=== PATIENT | female | born 1970 | race Caucasian/White ===

== ENCOUNTER 2019-07-05 08:38 | Outpatient (CLI) | payer OTHER, SELFPAY ==
--- NOTE | ~2019-07-05 | MMUS_ITS ---
EXAMINATION: MM diagnostic andree BI w willie, US breast LT complete HISTORY: Left nipple discharge TECHNIQUE: ML, MLO and cc 3-D tomosynthesis images of both breasts were performed and synthetic 2-D i mages were generated. CAD analysis was submitted and interpreted. High resolution complete left breas t ultrasound was performed. COMPARISON: 03/08/2012 bilateral digital screening mammogram BREAST PARENCHYMAL COMPOSITION: There are scattered areas of fibroglandular density. FINDINGS: MAMMOGRAPHIC FINDINGS: No suspicious mass or architectural distortion, malignant calcification, skin thickening or retractio n or significant or developing density since 03/08/2012 is evident. Left complete breast ULTRASOUND: 12:00 1 cm from nipple: Parallel circumscribed relatively sonolucent 3.5 x 7.8 x 9.3 mm lesion with t hrough transmission posterior enhancement, faint internal echoes, having benign appearance 1:00 3 cm from nipple: 1.7 x 1.8 mm sonolucency, likely a small cyst 6:00 3 cm from nipple: Parallel circumscribed 6.2 x 4.2 x 2.2 mm relatively sonolucent lesion with fa int internal echoes, having benign appearance No suspicious solid lesion or shadowing is evident. IMPRESSION: 1. No mammographic evidence of malignancy 2. Routine annual mammographic screening follow-up is recommended BI-RADS Category 2: Benign finding(s). Reviewed, dictated and finalized at location A. LINING [employer] IMPRESSION: 1. No mammographic evidence of malignancy 2. Routine annual mammographic screening follow-up is recommended BI-RADS Category 2: Benign finding(s).
== END 2019-07-05 08:39 | disposition home or self-care (01) ==
LOC: CHSIMG 08:39
PROVIDERS: PCP Internal Medicine; Visit Provider Nurse Practitioner Family
DX: N64.52 Nipple discharge (principal)
CPT/HCPCS: 76641; 77062; 77066; G0279

== ENCOUNTER 2019-07-10 12:57 | Outpatient (CLI) | payer OTHER, SELFPAY | END 2019-07-10 12:58 | disposition home or self-care (01) | PROVIDERS: PCP Internal Medicine; Visit Provider Nurse Practitioner Family | DX: Z53.8 Procedure and treatment not carried out for other reasons (principal); N64.52 Nipple discharge; Z78.0 Asymptomatic menopausal state; E11.9 Type 2 diabetes mellitus without complications; I10 Essential (primary) hypertension | CPT/HCPCS: 99199 ==

== ENCOUNTER 2019-10-31 00:07 | Outpatient (CLI) | payer OTHER, SELFPAY ==
[2019-10-31 17:33] LABS: SARS-CoV-2 RNA PCR Negative
== END 2019-10-31 00:08 | disposition home or self-care (01) ==
LOC: ANHCOVIDDT 00:07
PROVIDERS: PCP Internal Medicine; Visit Provider Surgery
DX: Z01.812 Encounter for preprocedural laboratory examination (principal); Z20.828 Contact with and (suspected) exposure to other viral communicable diseases
CPT/HCPCS: 87635; C9803; U0003

== ENCOUNTER 2019-11-02 01:26 | Day surgery (SDC) | payer OTHER, SELFPAY ==
[2019-10-22 12:42] VITALS: BMI 69.2
[2019-11-02 10:57] VITALS: BP 137/72; PULSE 131; RESP 22; TEMP 36.8; O2SAT 95
[2019-11-02] MEDS: LACTATED RINGERS 1,000 ML 150 ML IV CONT (11:05)
--- NOTE | 2019-11-02 11:07 | WPDANESEPPF ---
Anes - Initial Pre Proc Eval Procedure: Operation Date: 11/02/19 13:00 Proposed Procedures p Screening Colonoscopy - Paramjit Soni DO Date/Time: 11/02/19 11:07 Surgeon: Paramjit Soni DO Pre Op Diagnosis: History of Colon Polyps Patient Data Age: 49 Gender: F Height: 5 ft 2 in Weight: 172.1 kg Last Vital Signs Temp 36.8 C 11/02/19 10:57 Pulse 131 H 11/02/19 10:57 Resp 22 H 11/02/19 10:57 BP 137/72 11/02/19 10:57 Pulse Ox 95 11/02/19 10:57 Allergies Allergy/AdvReac Type Severity Reaction Status Date / Time No Known Allergies Allergy Verified 11/02/19 10:55 Home Medications Medication Instructions Recorded Confirmed Type aspirin 325 mg PO DAILY 10/22/19 10/22/19 History bupropion HCl 300 mg PO QAM 10/22/19 10/22/19 History hydroxyzine pamoate 50 mg PO QID PRN 10/22/19 10/22/19 History venlafaxine 150 mg PO BID 10/22/19 10/22/19 History Patient hx anesthesia problems: none Family hx anesthesia problems: none PMFSH Past Medical History Medical History Anxiety CAD (coronary artery disease) Depression DVT (deep venous thrombosis) Hyperlipidemia KIERA (obstructive sleep apnea) Super obesity Surgical History Surgical History Stented coronary artery Social History Social History Gender identity (if verbalized by the patient): Female Anes - Eval Final PreProcedure Day of Procedure 11/02/19 11:07 Patient weight: super morbidly obese Heart: regular rate and rhythm Lungs: decreased breath sounds Airway: Mallampati scale class II Neurological: alert and oriented Last oral intake: >/= 8 hours ASA classification: IV Emergent: no Anesthetic plan: proceed Anesthesia type and monitoring: general GIVS and standard monitoring Informed Consent: The patient's anesthetic plan and its attendant risks and benefits were discussed with the patient/family/POA. Questions were solicited and answers provided to the satisfaction of the patient/family/POA.
--- NOTE | 2019-11-02 13:07 | PM.IMHP ---
H&P: HPI History of Present Illness Chief complaint: History of Colon Polyps Narrative: Vanesa Irvin is a 49 year old female who presents for colonoscopy. She has a hx of polyps and last had a colonoscopy about 5 years ago. Denies blood in stool. No fam hx colon cancer. Review of Systems Review of Systems: All systems reviewed & are unremarkable except as noted in HPI and below Constitutional: Constitutional: Denies chills, Denies fever(s), Denies headache(s) and Denies weight loss Eyes: Eyes: Denies change in vision ENT: Denies dizziness, Denies headache(s), Denies neck mass and Denies throat swelling Cardiovascular: Cardiovascular: Denies chest pain, Denies lightheadedness and Denies dyspnea Respiratory: Respiratory: Denies cough, Denies dyspnea and Denies wheezing Gastrointestinal: Gastrointestinal: Denies abdominal pain, Denies change in bowel habits, Denies nausea and Denies vomiting Genitourinary: Genitourinary: Denies hematuria and Denies dysuria Musculoskeletal: Musculoskeletal: Reports as per HPI Integumentary/Breasts: Skin/Breast: Reports as per HPI Neurologic: Denies dizziness and Denies headache(s) Allergic/Immunologic: Allergic/Immunologic: Denies throat swelling and Denies wheezing PMFSH Past Medical History Medical History Anxiety CAD (coronary artery disease) Depression DVT (deep venous thrombosis) Hyperlipidemia KIERA (obstructive sleep apnea) Super obesity Surgical History Surgical History Stented coronary artery Social History Social History Gender identity (if verbalized by the patient): Female Meds Home Medications and Allergies Home Medications Medication Instructions Recorded Confirmed Type aspirin 325 mg PO DAILY 10/22/19 10/22/19 History bupropion HCl 300 mg PO QAM 10/22/19 10/22/19 History hydroxyzine pamoate 50 mg PO QID PRN 10/22/19 10/22/19 History venlafaxine 150 mg PO BID 10/22/19 10/22/19 History Allergies Allergy/AdvReac Type Severity Reaction Status Date / Time No Known Allergies Allergy Verified 11/02/19 10:55 Vital Signs Vital Signs - 24 hr 11/02/19 10:57 Temperature 36.8 C Pulse Rate 131 H Respiratory Rate 22 H Blood Pressure 137/72 Pulse Oximetry 95 Exam Const: General: alert; No acute distress Orientation/consciousness: patient oriented x3 Limitations: no limitations HENMT: Head: normocephalic and atraumatic Ears: hearing grossly normal bilaterally General nose exam: Normal external nose present and Normal nares present Mouth: Yes Normal oral and palatal mucosa present and Yes moist mucous membranes Eyes: General: appearance normal, both eyes and all related structures Conjunctivae: conjunctivae normal Sclera: sclerae normal Pupils: Equal, round and reactive pupils present EOM: EOMs intact bilaterally Neck: Neck: normal visual inspection, full ROM, no lymphadenopathy, supple and no JVD Lymphatic: no lymphadenopathy noted Chest: Chest palpation & inspection: normal inspection of the chest Resp: Effort & Inspection: normal respiratory effort and able to speak in complete sentences Auscultation: clear to auscultation bilaterally Percussion: percussion normal Cardio: Jugular venous distension: no JVD Rate: regular rate Rhythm: regular rhythm Heart sounds: S1 normal heart sound present and S2 normal heart sound present Peripheral pulses: Peripheral pulses 2+ throughout GI: Inspection: normal to inspection GI Palp: No abdominal tenderness, Yes Soft to palpation, No Guarding due to palpation present (GI), No Hernia present and No Rebound tenderness present Percussion: Yes normal to percussion Auscultation: normal bowel sounds : General: Yes no CVA tenderness Back/Spine/Pelvis: Back: no CVA tenderness Skin: General skin exam: normal color and dry
[2019-11-02 13:48] VITALS: BP 127/56; PULSE 103; RESP 22; O2SAT 100
[2019-11-02 13:58] VITALS: BP 127/72; PULSE 104; RESP 21; O2SAT 97
[2019-11-02 14:08] VITALS: BP 132/84; PULSE 101; RESP 24; O2SAT 100
== END 2019-11-02 14:30 | disposition home or self-care (01) ==
PROVIDERS: PCP Internal Medicine; Visit Provider Surgery
PROC: 0DJD8ZZ Inspection of Lower Intestinal Tract, Via Natural or Artificial Opening Endoscopic (ICD-10-PCS; CPT 45378; principal; 2019-11-02 13:00)
DX: Z12.11 Encounter for screening for malignant neoplasm of colon (principal); D12.2 Benign neoplasm of ascending colon; D17.5 Benign lipomatous neoplasm of intra-abdominal organs; I25.10 Atherosclerotic heart disease of native coronary artery without angina pectoris; E78.5 Hyperlipidemia, unspecified; G47.33 Obstructive sleep apnea (adult) (pediatric); F41.8 Other specified anxiety disorders; Z86.718 Personal history of other venous thrombosis and embolism; Z79.82 Long term (current) use of aspirin; E66.01 Morbid (severe) obesity due to excess calories; Z68.44 Body mass index [BMI] 60.0-69.9, adult; Z95.5 Presence of coronary angioplasty implant and graft
CPT/HCPCS: 45380; 45385; 88305; J2704; J7120

== ENCOUNTER 2020-01-15 07:45 | Inpatient (IN) | payer OTHER, SELFPAY ==
[2020-01-15] VITALS (9 sets, daily range): BP systolic 103–165; BP diastolic 53–88; PULSE 96–130; RESP 20–24; TEMP 35.8–38.2; O2SAT 94–98; BMI 69.9
--- NOTE | ~2020-01-15 | CT_ITS ---
EXAMINATION: CT abdomen pelvis wo con DATE: 01/20/2020 09:51 INDICATION: Abdomen pain. Status post hysterectomy. Gallbladder and appendix surgically removed. TECHNIQUE: Computed tomography (CT) of the abdomen and pelvis was performed without intravenous contr ast. The dose-length product was 1692.82 mGy-cm. Automated exposure control and iterative reconstruct ion technique were employed. COMPARISON: CT dated 12/10/2011 FINDINGS: Lung bases are unremarkable. Heart size normal. No significant pleural or pericardial effus ion. Status post cholecystectomy. There is a subtle 1.6 cm hypodensity of the right hepatic lobe, breana ge 82. The spleen, pancreas, adrenal glands and kidneys are unremarkable. No significant vascular abn ormality. Nonobstructive bowel gas pattern. No lymph node enlargement. No free air or free fluid. No abnormal pelvic masses or fluid collections. Status post appendectomy. Status post hysterectomy. IMPRESSION: 1. No acute abdominal abnormality. 2: Subtle liver hypodensity measuring 1.6 cm of the right hepatic lobe. Correlation with ultrasound recommended. Reviewed, dictated and finalized at location A. IMPRESSION: 1. No acute abdominal abnormality. 2: Subtle liver hypodensity measuring 1.6 cm of the right hepatic lobe. Correl ation with ultrasound recommended.
--- NOTE | ~2020-01-15 | US_ITS ---
EXAMINATION: US right upper quadrant DATE: 01/21/2020 09:36 INDICATION: Elevated liver enzymes, possible liver lesion on CT. TECHNIQUE: Multiple grayscale and Doppler ultrasound images of the abdomen were obtained. COMPARISON: CT, 01/20/2020 FINDINGS: Bowel gas obscures visualization of the pancreas. The visualized portions of the pancreas a re unremarkable. The liver is normal with normal echogenicity and echotexture. No sonographic correla te is identified for the liver lesion questioned on CT. However, the lesion measured fluid attenuatio n, most likely a cyst or hemangioma. No surface nodularity. Normal hepatopetal flow in the main andie l vein. The gallbladder is surgically absent. The normal common bile duct measures 6 mm. IMPRESSION: 1. No sonographic correlate for the patient's symptoms. Reviewed, dictated and finalized at location A.
--- NOTE | ~2020-01-15 | CT_ITS ---
EXAMINATION: CTA chest PE protocol DATE: 01/15/2020 09:56 INDICATION: Chest pain, tachycardia, shortness of breath and elevated d-dimer. TECHNIQUE: Computed tomography (CT) pulmonary angiogram of the chest was performed with 100 mL Omnipa que-350 intravenous contrast. Additional 3D reconstructions utilizing coronal maximum intensity proje ction (MIP) were performed. Automated exposure control and iterative reconstruction technique were em ployed. The dose-length product was 1013.98 mGy-cm. COMPARISON: 10/09/2010 FINDINGS: Excellent contrast opacification of the pulmonary arteries. There is mild streak artifact from dense contrast in the superior vena cava and right atrium which affects most prominently the vessels in the infrahilar region. Mild scattered respiratory motion artifact. No definitive pulmonary embolism. The re are three 5-6 mm noncalcified granuloma in the left lower lobe which are unchanged since the prior study. No pneumonia, pulmonary edema, pleural effusion or pneumothorax. Heart size is normal with mi ldly prominent paracardial fat pads. Atherosclerotic coronary artery calcific calcification. No peric ardial effusion. No pathologically enlarged thoracic lymphadenopathy. Diffuse hepatic steatosis. Chol ecystectomy clips at the gallbladder fossa. Minimal thoracic spondylosis. IMPRESSION: 1. No pulmonary embolism or other acute cardiopulmonary disease. Reviewed, dictated and finalized at location A.
--- NOTE | ~2020-01-15 | XR_ITS ---
EXAMINATION: XR chest 1V portable DATE: 01/15/2020 08:24 INDICATION: Chest pain. Fever. TECHNIQUE: A single frontal view of the chest was obtained. COMPARISON: Chest single view 02/15/2015 FINDINGS: There is no pneumonia, pleural effusion, or pneumothorax. Cardiomegaly is noted. IMPRESSION: 1. Cardiomegaly. Reviewed, dictated and finalized at location B. IMPRESSION: 1. Cardiomegaly.
--- NOTE | ~2020-01-15 | US_ITS ---
EXAMINATION: US venous doppler [facility] DATE: 01/16/2020 10:30 INDICATION: Chest pain. TECHNIQUE: Grayscale ultrasound images without and with compression and Doppler ultrasound images of the bilateral lower extremity veins were obtained. COMPARISON: None. FINDINGS: The visualized portions of right common femoral vein, profunda (deep) femoral vein, femoral vein, pop liteal vein, posterior tibial veins, and greater saphenous vein outflow are patent. The visualized portions of left common femoral vein, profunda femoral vein, femoral vein, popliteal v ein, posterior tibial veins, and greater saphenous vein outflow are patent. IMPRESSION: 1. No deep venous thrombosis. Reviewed, dictated and finalized at location B.
[2020-01-15] MEDS: ONDANSETRON INJ 4 MG/2 ML VIAL IV PUSH ×2 (07:50→21:58)
--- NOTE | 2020-01-15 07:50 | ECG_ITS ---
Measurements Intervals [place] Rate: 130 P: 69 WA: 184 QRS: 76 QRSD: 86 T: 46 QT: 302 QTc: 445 Interpretive Statements SINUS TACHYCARDIA VENTRICULAR PREMATURE COMPLEX LOW QRS VOLTAGE IN PRECORDIAL LEADS BORDERLINE R WAVE PROGRESSION, ANTERIOR LEADS NONSPECIFIC T-WAVE ABNORMALITY- INFERIOR LEADS ABNORMAL ECG Electronically Signed On 01-15-2020 13:44:32 CDT by Serafin Burns D.O.
--- NOTE | 2020-01-15 07:50 | ED.CHESTPAIN ---
HPI - Chest Pain General Chief Complaint: Chest Pain Stated Complaint: ambulance Time Seen by Provider: 01/15/20 07:50 Source: patient and EMS Mode of arrival: EMS Limitations: no limitations History of Present Illness HPI narrative: 49-year-old woman comes in today complaining of vomiting, sharp left-sided chest pain that is intermittent, shortness of breath and fever that started this morning. She states this started several hours ago. She states that she ate evening meal and felt fine last night when she went to bed. She states the chest pain is similar to what she had when she had heart problems previously. She denies lightheadedness, falls, syncope, dysuria, hematuria, abdominal pain, diarrhea, rash or sick exposures. She received 324 mg of aspirin in the ambulance. MD complaint: chest pain Pertinent past history: coronary artery disease and prior ID Onset (ago): hour(s) (2) Timing of current episode: episodic Prior episodes: Yes Onset: during rest Pain location: left chest Pain radiation: back Quality: sharp Relieving factors: nothing Exacerbating factors: nothing Associated symptoms: nausea, vomiting, diaphoresis, palpitations and fever Treatment prior to arrival: aspirin and oxygen Risk Factors Coronary artery disease risk factors: smoking history, hyperlipidemia and hypertension Thoracic aortic dissection risk factors: none Pulmonary embolism risk factors: morbid obesity Related Data On Oral Contraceptives: No Home Medications Medication Instructions Recorded Confirmed aspirin 325 mg PO DAILY 10/22/19 01/15/20 bupropion HCl 300 mg PO QAM 10/22/19 01/15/20 hydroxyzine pamoate 50 mg PO QID PRN 10/22/19 01/15/20 venlafaxine 150 mg PO BID 10/22/19 01/15/20 Allergies Allergy/AdvReac Type Severity Reaction Status Date / Time No Known Allergies Allergy Verified 11/02/19 10:55 Review of Systems Constitutional: Constitutional: Reports as per HPI, Reports chills, Reports fatigue and Reports fever(s) Eyes: Eyes: Denies no additional eye complaints, Denies change in vision and Denies photophobia ENT: Denies dysphagia, Denies nasal congestion and Denies sore throat Cardiovascular: Cardiovascular: Reports as per HPI, Reports no additional cardiovascular complaints, Reports chest pain, Reports rapid heart rate and Denies radiating jaw, neck or arm pain Respiratory: Respiratory: Denies chest congestion, Denies cough, Reports dyspnea and Denies wheezing Gastrointestinal: Gastrointestinal: Reports as per HPI, Denies abdominal pain, Denies diarrhea, Reports nausea and Reports vomiting Genitourinary: Genitourinary: Denies nocturia and Denies dysuria Musculoskeletal: Musculoskeletal: Denies back pain, Reports myalgias, Denies arthralgias and Denies joint swelling Integumentary/Breasts: Skin/Breast: Denies pruritus, Denies erythema and Denies rash Neurologic: Denies vertigo, Denies dizziness, Denies syncope, Denies headache(s), Denies focal weakness and Denies numbness Psychiatric: Psychiatric: Reports anxiety Endocrine: Endocrine: Reports fatigue, Reports polydipsia and Denies polyuria Hematologic/Lymphatic: Hematologic/Lymphatic: Denies easy bleeding and Denies easy bruising Allergic/Immunologic: Allergic/Immunologic: Denies lip swelling, Denies throat swelling and Denies tongue swelling PMFSH Past Medical History Medical History (Updated 01/15/20 @ 09:12 by Reid Canales MD) Anxiety CAD (coronary artery disease) Depression DVT (deep venous thrombosis) Hyperlipidemia KIERA (obstructive sleep apnea) Super obesity Surgical History Surgical History (Updated 01/15/20 @ 08:00 by Reid Canales MD) History of appendectomy History of hysterectomy Hx of cholecystectomy Hx of tubal ligation Stented coronary artery Social History Social History Smoking status: Former smoker Alcohol intake: never Substance use: never Living arrangements:
[2020-01-15] MEDS: MORPHINE SULFATE 2 MG/ML INJ IV PUSH (07:53)
[2020-01-15 08:15] LABS: Basophils Absolute Auto 0.03 K/mm3 (0.00-0.10); Basophils Percent Auto 0.2 % (0.0-1.0); Eosinophils Absolute Auto 0.09 K/mm3 (0.02-0.50); Eosinophils Percent Auto 0.5 % (1.0-6.0); Hematocrit 43.4 % (35.0-49.0); Hemoglobin 13.9 g/dL (12.0-15.0); Immature Granulocyte Absolute 0.12 K/mm3 (0.00-0.00); Immature Granulocyte Percent A 0.7 % (0.0-0.0); Lymphocytes Absolute Auto 0.48 K/mm3 (1.10-4.50); Lymphocytes Percent Auto 2.9 % (18.0-42.0); Mean Corpuscular Hemoglobin 27.6 pg (27.0-31.0); Mean Corpuscular Volume 86.3 fL (78.0-102.0); Monocytes Absolute Auto 0.46 K/mm3 (0.10-0.90); Monocytes Percent Auto 2.8 % (2.0-11.0); Neutrophils Absolute Auto 15.2 K/mm3 (1.7-7.2); Neutrophils Percent Auto 92.9 % (50.0-70.0); Platelet Count Result 243 K/mm3 (150-420); Red Blood Count 5.03 M/mm3 (4.20-5.40); Red Cell Distribution Width 15.2 % (11.6-14.4); White Blood Count 16.4 K/mm3 (4.8-10.8)
[2020-01-15] MEDS: SODIUM CHLORIDE 0.9% IV 1,000 ML 999 ML IV CONT ×2 (08:16→09:21)
[2020-01-15 08:23] LABS: Bilirubin Urine Negative (Negative); Color Urine Yellow (Yellow); Glucose Urine UA 1+ (Negative); Ketones Urine Negative (Negative); Leukocyte Esterase Ur 1+ LEU/UL (Negative); Nitrate Urine Negative (Negative); Protein Urine Negative (Negative); Specific Grav Ur >= 1.030 (1.010-1.020); Urobilinogen Urine 0.2 mg/dL (0.2-1.0)
[2020-01-15 08:30] LABS: Add Urine Microscopic? YES; Appearance Urine Sl Cloudy (Clear); Bacteria Urine 1+ /hpf; Blood Urine Trace (Negative); RBC Urine 0-2 /hpf (0-2); Squamous Epithelial Cell Urine Many /hpf (Few)
[2020-01-15 08:30] LABS: Partial Thromboplastin Time 28.5 SEC (22.3-31.6); Prothrombin Time 10.7 Seconds (9.64-11.0)
[2020-01-15 08:32] LABS: D Dimer 1.75 mg/L (0.19-0.50)
[2020-01-15 08:33] LABS: Alanine Aminotransferase 24 U/L (14-59); Albumin Level 3.2 g/dL (3.4-5.0); Alkaline Phosphatase 146 U/L (46-116); Anion Gap 8 mmol/L (8-16); Aspartate Amino Transferase 16 U/L (15-37); Bilirubin,Total 0.8 mg/dL (0.00-1.00); Blood Urea Nitrogen 10 mg/dL (7-18); CRP 4.4 mg/dL (0.0-0.9); Calcium 8.7 mg/dL (8.5-10.1); Carbon Dioxide 28 mmol/L (21-32); Chloride 99 mmol/L (98-108); Estimated CRCL calculation 80 ml/min; Estimated Glomerular Filt Rate 50; Glucose 291 mg/dL (70-99); Lipase 36 U/L (73-393); Osmolality Calculated 290 mOsm/kg (285-295); Potassium 4.8 mmol/L (3.5-5.1); Sodium 135 mmol/L (136-145); Total Protein 7.2 g/dL (6.4-8.2)
[2020-01-15 08:34] LABS: BNP 14.5 pg/mL (0-100)
[2020-01-15 08:35] LABS: Troponin I < 0.02 ng/mL (0.00-0.056)
[2020-01-15 08:37] LABS: Lactic Acid 2.8 mmol/L (0.4-2.0)
[2020-01-15] MEDS: ACETAMINOPHEN 500 MG TABLET 1000 MG PO ×3 (09:20→23:25)
--- NOTE | 2020-01-15 09:22 | PC.NURSE ---
pt to xray per stretcher for ct. [id number] pt return to room. no complaints .. cool cloth to forehead per pt request
--- NOTE | 2020-01-15 09:52 | PC.NURSE ---
pt resting per cot. pt to be admitted to floor. room 210. awaiting call to give report.
--- NOTE | 2020-01-15 10:40 | ADMGEN ---
This patient, Vanesa Irvin, was admitted to 2nd Floor Room 210-2. Patient/family oriented to hospital policies and general routines including ID bracelet, bed and alarms, visiting hours, pain management, procedures, bathroom and other care routines, personal items, smoking policy, room service/diet, and visiting hours. Valuables list has been completed. Information on how to activate the Rapid Response Team has been discussed. Patient/Family are encouraged to report perceived risks to care and to ask questions if they do not understand what they are told or what they should do.
[2020-01-15] MEDS: SODIUM CHLORIDE 0.9% IV 1,000 ML 150 ML IV CONT (11:06)
[2020-01-15 11:28] LABS: Troponin I < 0.02 ng/mL (0.00-0.056)
[2020-01-15 12:05] LABS: Glucose Point of Care 265 (65-105)
[2020-01-15 12:15] LABS: Magnesium 1.6 mg/dL (1.8-2.4); Phosphorus 1.6 mg/dL (2.6-4.7)
--- NOTE | 2020-01-15 12:23 | PM.IMHP ---
H&P: HPI History of Present Illness Date/Time: 01/15/20 12:23 Chief complaint: sepsis uti chest pain Narrative: Vanesa Irvin is a 49 year old female was admitted this morning when she arrived by EMS complaining of chest pressure and squeezing. In the ED she was complaining of vomiting, sharp left-sided chest pain that is intermittent, shortness of breath and fever that started this morning. She states this started several hours ago. She states that she ate evening meal and felt fine last night when she went to bed. She states the chest pain is similar to what she had when she had heart problems previously. She denies lightheadedness, falls, syncope, dysuria, hematuria, abdominal pain, diarrhea, rash or sick exposures. She received 324 mg of aspirin and O2 in the ambulance. She does not use oxygen at home. At admission, she was tachycardic and her O2 sats were 88% on room air, so she was requiring supplemental oxygen. She is currently on 3 L of O2 nasal cannula, weaning as allowed. ED EKG showed sinus tach, no concerning ST changes. Vanesa informed me that she did vomit this morning, stated that not much food came up at all, and she is not sure why she vomited. She stated that she does not eat much at home. In that she has also not been drinking enough fluids at home. Vanesa stated that all of her complaints that she came to the ED with, head now currently resolved. She is currently denying any chest pressure or chest pain, denying shortness of breath, not having any nausea or vomiting or diarrhea at this time. She reports having a bowel movement yesterday that was normal for her, and denies constipation. Adwoa does admit to having a history of cholecystitis and pancreatitis, that eventually led to her gallbladder removal. Lipase today low at 36. She was started on a clear liquid diet and did tolerate her lunch with no nausea or vomiting afterward. I am advancing her to diabetic diet. Upon reviewing her office notes from the stock in clinic , her primary care provider is Dr. Alva. She has a history of coronary artery disease based on a cardiac catheterization and PTCA March of 2007 with stent placement to the LAD. she has no history of angina. Her other past medical history includes smoking history, hyperlipidemia, hypertension, morbid obesity, and a DVT. She admitted to me that she is supposed to be taking metformin at home but has not been. She stated that she would did not like to take medications without having food with the medications, that she does not eat much, and that is why she has been missing her medicine. Her heart rate is running 110s to 120s. I did check her magnesium=1.6 and phosphorus=1.6 levels and found them to be significantly low. Orders for magnesium sulfate IV replenishment as well as potassium phosphate IV replenishment. HR may improved with IVF boluses and electrolyte replenishment. Ordered continuous cardiac telemetry monitoring. Trop x 1 WNL and BNP wnl at 14.5. Elevated lactic acid 2.8 at admission. D-dimer also elevated at 1.75. CXR and Chest CTA did not show PE nor pneumonia. LFTs wnl, WBC elevated at 16.4, fevers at 38.2, 37.7, 37.7C noted, tachycardic with HR 120s, Elevated ESR and CRP=4.4. TSH was 1.31. Lipase 36. Her A1c has only worsened due to her not taking her metformin. A1c in May of 2019 was 7.8, today her A1c was 9.5 with bedside glucose checks over 200. We are checking bedside glucose levels ACHS, ordered low-dose sliding scale insulin, and plan to restart her metformin dosing 48 hours after her CTA if her lab work and condition has improved. Vanesa is also having acute kidney injury perhaps due to her significant dehydration. Her creatinine today is 1.15. Her creatinine in May of 2019 was 0.79. A UA was completed with 1+ leukocytes, 7-9WBC, 1+ bacteria, blood in urine cultures are pending. Her LFTs also show evidence of dehydration, normal AST and ALT with elevated Alk
[2020-01-15 12:34] LABS: Thyroid Stimulating Hormone Reflex 1.31 u/IU/mL (0.36-3.74)
[2020-01-15 12:37] LABS: Hemoglobin A1C 9.5 % (<5.7)
[2020-01-15 13:09] LABS: Erythrocyte Sedimentation Rate 28 mm/hr (0-20)
--- NOTE | 2020-01-15 13:43 | PC.NURSE ---
clarified with Griselda Abraham to give patient IV potassium/mag/phosphate with the current patient Potassium lab level of 4.8. Griselda Abraham ANP Confirmed it was ok to give current ordered medication since patient has had 2L of NS infused since K+ level drawn.
[2020-01-15] MEDS: MAGNESIUM SULF 4 GM/WATER100ML 4 GM/100 ML BAG IVPB (14:04)
[2020-01-15 14:27] LABS: Troponin I < 0.02 ng/mL (0.00-0.056)
[2020-01-15] MEDS: POTASSIUM PHOS,M-BASIC-D-BASIC 20 MMOL in SODIUM CHLORIDE 0.9% IV 250 ML 42.78 MMOL IVPB (16:16)
[2020-01-15] MEDS: VENLAFAXINE HCL XR 75 MG CAP.ER.24H 150 MG PO (16:24)
[2020-01-15 17:18] LABS: Glucose Point of Care 182 (65-105)
[2020-01-15 17:29] LABS: Lactic Acid 3.2 mmol/L (0.4-2.0)
[2020-01-15 17:39] LABS: Troponin I < 0.02 ng/mL (0.00-0.056)
[2020-01-15] MEDS: hydrOXYzine pamoate 25 MG CAPSULE 50 MG PO (20:07)
[2020-01-15 22:58] LABS: Glucose Point of Care 213 (65-105)
[2020-01-16] VITALS (7 sets, daily range): BP systolic 136–179; BP diastolic 65–94; PULSE 91–109; RESP 18–22; TEMP 36.1–36.7; O2SAT 89–96
--- NOTE | 2020-01-16 00:40 | PC.NURSE ---
Patient called nurse to room saying she has a sore on her butt. Patient says she went to the bathroom to urinate and when she wiped there was blood on the toilet paper and her butt was tender. Upon examination nurse found blood around rectum. Cleaned area well and looked again and noted multiple pin point areas around rectum that were bleeding. Suggested to patient that she should lie on her sides as much as possible and to be sure to clean area well when toileting. Offered to get cream to apply (either nurse or patient) but patient said no. Call light in reach.
[2020-01-16] MEDS: SODIUM CHLORIDE 0.9% IV 1,000 ML 150 ML IV CONT ×4 (00:45→16:43)
[2020-01-16] MEDS: hydrOXYzine pamoate 25 MG CAPSULE 50 MG PO (02:26)
[2020-01-16] MEDS: MORPHINE SULFATE 2 MG/ML INJ IV PUSH (02:26)
--- NOTE | 2020-01-16 02:49 | PC.NURSE ---
Throughout the night, since 0 shift began, patient has had multiple anxious complaints. Patient has complained of being hot/cold/hot/cold multiple times with room temp being adjusted and fan being turned off and on several times. Patient has complained of headache, nausea, headache, being anxious, sore on butt (turned out to be pin point open areas around rectum), then later left abdominal pain. Nurse in patient's room very frequently.
[2020-01-16 05:31] LABS: Basophils Absolute Auto 0.03 K/mm3 (0.00-0.10); Basophils Percent Auto 0.4 % (0.0-1.0); Eosinophils Absolute Auto 0.06 K/mm3 (0.02-0.50); Eosinophils Percent Auto 0.8 % (1.0-6.0); Hemoglobin 12.6 g/dL (12.0-15.0); Immature Granulocyte Absolute 0.04 K/mm3 (0.00-0.00); Immature Granulocyte Percent A 0.5 % (0.0-0.0); Lymphocytes Absolute Auto 0.67 K/mm3 (1.10-4.50); Lymphocytes Percent Auto 8.7 % (18.0-42.0); Mean Corpuscular HGB Conc 31.5 g/dL (32.0-36.0); Mean Corpuscular Hemoglobin 27.3 pg (27.0-31.0); Mean Corpuscular Volume 86.6 fL (78.0-102.0); Mean Platelet Volume 9.5 fl (9.2-11.8); Monocytes Absolute Auto 0.28 K/mm3 (0.10-0.90); Monocytes Percent Auto 3.6 % (2.0-11.0); Neutrophils Absolute Auto 6.6 K/mm3 (1.7-7.2); Platelet Count Result 215 K/mm3 (150-420); Red Blood Count 4.62 M/mm3 (4.20-5.40); Red Cell Distribution Width 15.3 % (11.6-14.4); White Blood Count 7.7 K/mm3 (4.8-10.8)
[2020-01-16 05:57] LABS: Lactic Acid 2.7 mmol/L (0.4-2.0)
[2020-01-16 06:00] LABS: Anion Gap 9 mmol/L (8-16); Blood Urea Nitrogen 10 mg/dL (7-18); Calcium 8.1 mg/dL (8.5-10.1); Carbon Dioxide 26 mmol/L (21-32); Chloride 100 mmol/L (98-108); Cholesterol 199 mg/dL (0-200); Estimated CRCL calculation 87 ml/min; Estimated Glomerular Filt Rate 53; Glucose 199 mg/dL (70-99); HDL Direct 37 mg/dL (40-60); LDL Cholesterol Calculated 137 mg/dL (<130); Magnesium 2.4 mg/dL (1.8-2.4); Osmolality Calculated 285 mOsm/kg (285-295); Phosphorus 2.6 mg/dL (2.6-4.7); Potassium 3.7 mmol/L (3.5-5.1); Sodium 135 mmol/L (136-145); Triglycerides 125 mg/dL (0-150)
[2020-01-16 06:02] LABS: CRP > 11.0 mg/dL (0.0-0.9)
[2020-01-16 07:57] LABS: Glucose Point of Care 195 (65-105)
--- NOTE | 2020-01-16 08:00 | ECHO_ITS ---
Patient Info Name: Vanesa Irvin Age: 49 years : 1970 Gender: Female Ht: 62 in Wt: 388 lbs BSA: 2.91 m2 HR: 111 bpm BP: 168 / 94 mmHg Heart Rhythm: Sinus Rhythm Technical Quality: Poor Exam Date: 01/16/2020 9:03 AM Exam Location: [facility] Patient Status: Inpatient Admit Date: 01/15/2020 Staff Ordering Physician: Griselda Abraham NP Watchmaking Teacher: Anna Valdes RDCS Attending Provider: Reid Canales MD Referring Physician: Jarad HERNANDEZ; Exam Type: CA echo dop color flow w con Study Info Indications 125.2 - Old myocardial Infarction R06.02 - Shortness of breath R00.0 - Tachycardia, unspecified R07.9 - Chest pain, unspecified Complete two-dimensional, color flow and Doppler transthoracic echocardiogram is performed with contrast to opacify the left ventricle and to improve the deliniation of the left ventricle endocardial borders. Contrast/Agitated Saline Contrast/Ag. Saline: Definity Amount: 5.00 ml Existing IV Access: Yes IV Access Condition: patent with no signs of infiltration New IV Access: Right Site Condition: No extravasation Reason for Poor Study: patient body habitus History/Risk Factors Hypertension: Yes Myocardial Infarction (NH): Yes Obesity: Yes Diabetes Mellitus: Yes Tobacco Use: Former Frailty Scale (CSHA): 4: Vulnerable Summary 1. Technically suboptimal study due to poor sonographic images. 2. Left ventricular chamber dimension is normal. 3. Definity contrast administered improved wall motion interpretation. 4. Left ventricular systolic function is normal, estimated at 55-60%. 5. There is mildly increased left ventricular wall thickness. 6. Left ventricular septal wall motion is abnormal with septal motion related to bundle branch block. 7. The left ventricular diastolic function is grade I diastolic dysfunction. 8. E/e' 8 is minimally elevated. Recommendations * Continue medical therapy for diabetes. Left Ventricle Technically suboptimal study due to poor sonographic images. E/e' 8 is minimally elevated. Definity contrast administered improved wall motion interpretation. Left ventricular chamber dimension is normal. Left ventricular systolic function is normal, estimated at 55-60%. There is mildly increased left ventricular wall thickness. Left ventricular septal wall motion is abnormal with septal motion related to bundle branch block. The left ventricular diastolic function is grade I diastolic dysfunction. Right Ventricle Right ventricular chamber dimension is normal. Right ventricular systolic function is normal. Left Atria Left atrial chamber dimension is normal. Right Atria Right atrial chamber dimension is normal. Aortic Valve Cannot determine number of aortic valve leaflets. The aortic valve is not well visualized. There is no aortic valve stenosis. There is no aortic valve regurgitation. Pulmonic Valve The pulmonic valve is not well visualized. Mitral Valve There is no mitral valve stenosis. There is no mitral valve regurgitation. Tricuspid Valve The tricuspid valve leaflets are not well visualized. Pericardium/Pleural There is no pericardial effusion. Aorta The aortic root size at the sinus of Valsalva is not well visualized. Left Ventricular Outflow Tract Name
--- NOTE | 2020-01-16 08:03 | PM.IMPN ---
Progress Note: A&P Assessment and Plan (1) Sepsis: Qualifiers: Acute renal failure type: unspecified Sepsis acute organ dysfunction status: with acute organ dysfunction Sepsis type: sepsis due to unspecified organism Severe sepsis acute organ dysfunction type: acute renal failure Severe sepsis shock status: without septic shock Qualified Code(s): A41.9 - Sepsis, unspecified organism; R65.20 - Severe sepsis without septic shock; N17.9 - Acute kidney failure, unspecified Code(s): A41.9 - Sepsis, unspecified organism Status: Acute Assessment and Plan: RESOLVED. likely dehydration Sepsis due to Fevers, Tachycardia, Leukocytosis, ARF, Hypoxemia (newly requiring supplemental O2 NC), UA with evidence of UTI. aggressive IV hydration and boluses replenishment of electrolytes repeat lab work with serial labs in place continuous cardiac telemetry monitoring and vital signs every 4 hours advancing diet as tolerated controlling glucose levels - change from low-dose sliding scale to moderate dose sliding scale insulin today treating with IV antibiotics, Levaquin CT angio ruled out PE and pneumonia/infection ESR and CRP are elevated, likely reactive response UA was completed with 1+ leukocytes, 7-9WBC, 1+ bacteria, blood in urine cultures are pending. COVID testing rule out is still pendiing - hope to have results tomorrow. (2) Chest pain: Qualifiers: Chest pain type: unspecified Qualified Code(s): R07.9 - Chest pain, unspecified Code(s): R07.9 - Chest pain, unspecified Status: Acute Assessment and Plan: Differential diagnosis: Chest pain, ACS, Sepsis, pneumonia, PE, Covid 19, Acute Dehydration in ED stated the chest pain is similar to what she had when she had heart problems previously. improved with 324 mg of aspirin and O2 in the ambulance. vomiting, sharp left-sided chest pain, shortness of breath and fever - currently resolved denies lightheadedness, falls, syncope, dysuria, hematuria, abdominal pain, diarrhea, rash or sick exposures. does not use oxygen at home - her O2 sats were 88% on room air, so she is requiring supplemental oxygen - currently on 3 L of O2 nasal cannula, weaning as allowed. ED EKG showed sinus tach, no concerning ST changes. serial troponins x3 were all normal and serial lactic acid levels improved to normal today continuous cardiac telemetry monitoring in place and vital signs every 4 hours showed no ectopy or concerning arrhythmia or acute waveform missing doses at home of her home medications heart rate improved from the 110s and 120s down to 90s LOW electrolytes: replenished and upon recheck normal levels today BNP wnl at 14.5. ECHO completed, awaiting report and results = patient did have pericarditis with a pericardial infusion in September of 2010, which she just remember to tell me today D-dimer also elevated at 1.75. CXR and Chest CTA did not show PE nor pneumonia. fevers have resolved (3) UTI (urinary tract infection): Qualifiers: Hematuria presence: without hematuria Urinary tract infection type: site unspecified Qualified Code(s): N39.0 - Urinary tract infection, site not specified Code(s): N39.0 - Urinary tract infection, site not specified Status: Acute Assessment and Plan: no dysuria, denies hematuria, denies abdominal pain, morbid obesity and dehydration and uncontrolled glucose levels contribute to UTIs. continued on IV levaquin antibiotics for UTI and possible pneumonia. started on Cranberry extract get glucose levels better controlled with SSI and restarting oral metformin in 48 hours. not been drinking enough fluids at home - encouraging better and more oral hydration. Ordered continuous cardiac telemetry monitoring. Elevated lactic acid 2.8 at admission. resolved, lactic normal at 1.2 today WBC elevated at 16.4, improved to a white count of 7.7 today fevers at 38.2, 37.7
[2020-01-16] MEDS: ASPIRIN 325 MG ENTERIC TABLET PO (08:18)
[2020-01-16] MEDS: MAGNESIUM OXIDE 400 MG TABLET PO (08:18)
[2020-01-16] MEDS: VENLAFAXINE HCL XR 75 MG CAP.ER.24H 150 MG PO ×2 (08:18→16:43)
[2020-01-16] MEDS: ENOXAPARIN 40 MG/0.4 ML SYRINGE SUB-Q (08:18)
[2020-01-16] MEDS: buPROPion HCL XL (24 HR) 150 MG TABCR 300 MG PO (08:19)
[2020-01-16 08:38] LABS: Creatine Kinase 53 U/L (26-192)
[2020-01-16 08:48] LABS: Lactate Dehydrogenase 176 U/L (81-234)
[2020-01-16 09:07] LABS: Erythrocyte Sedimentation Rate 32 mm/hr (0-20)
[2020-01-16] MEDS: LIDOCAINE 5% PATCH 2 PATCH TRANSDERM (09:51)
[2020-01-16] MEDS: TOLNAFTATE 1% POWDER 45 GM BTL 1 APPLIC TOPICAL ×2 (11:37→21:23)
[2020-01-16 11:55] LABS: Glucose Point of Care 206 (65-105)
[2020-01-16 12:34] LABS: Lactic Acid 1.2 mmol/L (0.4-2.0)
[2020-01-16 16:55] LABS: Glucose Point of Care 159 (65-105)
[2020-01-16 18:19] LABS: SARS-CoV-2 RNA PCR Negative
[2020-01-16 21:40] LABS: Glucose Point of Care 202 (65-105)
[2020-01-17] VITALS (13 sets, daily range): BP systolic 109–147; BP diastolic 61–85; PULSE 82–124; RESP 14–20; TEMP 35.7–36.5; O2SAT 88–98
[2020-01-17 05:36] LABS: Hematocrit 39.2 % (35.0-49.0); Hemoglobin 12.4 g/dL (12.0-15.0); Mean Corpuscular HGB Conc 31.6 g/dL (32.0-36.0); Mean Corpuscular Hemoglobin 27.3 pg (27.0-31.0); Mean Corpuscular Volume 86.3 fL (78.0-102.0); Mean Platelet Volume 9.7 fl (9.2-11.8); Platelet Count Result 185 K/mm3 (150-420); Red Blood Count 4.54 M/mm3 (4.20-5.40); Red Cell Distribution Width 15.2 % (11.6-14.4); White Blood Count 4.4 K/mm3 (4.8-10.8)
[2020-01-17 05:57] LABS: Alanine Aminotransferase 24 U/L (14-59); Albumin Level 2.7 g/dL (3.4-5.0); Alkaline Phosphatase 118 U/L (46-116); Anion Gap 2 mmol/L (8-16); Aspartate Amino Transferase 17 U/L (15-37); Bilirubin,Total 0.3 mg/dL (0.00-1.00); Blood Urea Nitrogen 7 mg/dL (7-18); CRP 9.3 mg/dL (0.0-0.9); Calcium 8.1 mg/dL (8.5-10.1); Carbon Dioxide 30 mmol/L (21-32); Chloride 103 mmol/L (98-108); Estimated CRCL calculation 95 ml/min; Estimated Glomerular Filt Rate 59; Glucose 199 mg/dL (70-99); Osmolality Calculated 284 mOsm/kg (285-295); Potassium 4.3 mmol/L (3.5-5.1); Sodium 135 mmol/L (136-145); Total Protein 6.4 g/dL (6.4-8.2)
[2020-01-17 08:09] LABS: Glucose Point of Care 187 (65-105)
--- NOTE | 2020-01-17 08:29 | PC.NURSE ---
Griselda Abraham ANP notified of Urine culture sensitivity report resulting today.
--- NOTE | 2020-01-17 09:03 | HOMEO2EVAL ---
Home Oxygen Evaluation RC: Home Oxygen (O2) Evaluation Start: 01/17/20 08:00 Freq: ONCE Status: Active Protocol: RPE Activity Type Activity Date Activity User E-Sign Co-Sign Detail Recorded Client Recorded Date Recorded By Document 01/17/20 08:50 MARIZOL [id number] 01/17/20 09:02 SJB Document 01/17/20 08:58 SJB [id number] 01/17/20 09:02 SJB Document 01/17/20 09:01 SJB [id number] 01/17/20 09:02 SJB 01/17/20 01/17/20 01/17/20 08:50 08:58 09:01 Home O2 Evaluation Test Phase Resting Exercise Exercise Oxygen Delivery Room Air Room Air Nasal Cannula Oxygen Flow Rate (L/min) 2 Pulse Oximetry (90-100 %) 92 91 94 Pulse Rate (60-100 beats/min) 110 H 112 H 124 H Activity Tolerance Fair Fair Rating of Perceived Dyspnea (PD) +1 Mild, +1 Mild, +2 Mild, Some Noticeable to Noticeable to Difficulty, the Participant the Participant Noticeable to but Not to an but Not to an the Observer Observer Observer Rate of Perceived Exertion (PE) 9 Very light 13 Somewhat Hard Ambulation Distance (feet) 60 120 Home Oxygen Evaluation Comments AFTER 60 FT FINISHED WALK SP02 DROPPED TO AT 120 FT ON 88% ON ROOM 2LPM TOLERATING AIR, PT USING WELL WITH SP02 PLB AND AT 94%. COMPLAING OF BACK PAIN, ASKING TO STOP AND SIT. O2 STARTED AT 2 LPM. Treatment Charges O2 Evaluation
[2020-01-17] MEDS: buPROPion HCL XL (24 HR) 150 MG TABCR 300 MG PO (09:30)
[2020-01-17] MEDS: VENLAFAXINE HCL XR 75 MG CAP.ER.24H 150 MG PO ×2 (09:30→17:19)
[2020-01-17] MEDS: ASPIRIN 325 MG ENTERIC TABLET PO (09:30)
[2020-01-17] MEDS: LIDOCAINE 5% PATCH 2 PATCH TRANSDERM (09:30)
[2020-01-17] MEDS: TOLNAFTATE 1% POWDER 45 GM BTL 1 APPLIC TOPICAL ×2 (09:31→21:19)
[2020-01-17] MEDS: MAGNESIUM OXIDE 400 MG TABLET PO (09:31)
[2020-01-17] MEDS: ENOXAPARIN 40 MG/0.4 ML SYRINGE SUB-Q (09:31)
[2020-01-17] MEDS: levoFLOXacin TAB 500 MG, levoFLOXacin TAB 250 MG 750 MG PO (10:46)
--- NOTE | 2020-01-17 10:53 | PM.IMPN ---
Progress Note: A&P Assessment and Plan (1) Sepsis: Qualifiers: Acute renal failure type: unspecified Sepsis acute organ dysfunction status: with acute organ dysfunction Sepsis type: sepsis due to unspecified organism Severe sepsis acute organ dysfunction type: acute renal failure Severe sepsis shock status: without septic shock Qualified Code(s): A41.9 - Sepsis, unspecified organism; R65.20 - Severe sepsis without septic shock; N17.9 - Acute kidney failure, unspecified Code(s): A41.9 - Sepsis, unspecified organism Status: Acute Assessment and Plan: RESOLVED. likely dehydration paired with bacteremia and UTI Sepsis due to Fevers, Tachycardia, Leukocytosis, ARF, Hypoxemia (newly requiring supplemental O2 NC), UA with evidence of UTI, blood cx with bacterial growth. aggressive IV hydration and boluses completed - now on oral hydration replenishment of electrolytes completed lactic levels now WNL, renal function labs now WNL continuous cardiac telemetry monitoring and vital signs every 4 hours - stable no ectopy - restarted Metoprolol advancing diet as tolerated controlling glucose levels - change from low-dose sliding scale to moderate dose sliding scale insulin yesterday - able to restart Metformin today. treating with IV antibiotics, Levaquin course completed, now on IV Rocephin [address] angio ruled out PE and pneumonia/infection, ECHO ruled out pericardial effusion and no evidence of vegetation. ESR 28 , up to 32 today. CRP improved from >11.0 to 9.3 today. Urine culture showed E.Coli with sensitivities to Levaquin and to Rocephin. Waiting for BLood Culture Sensitivities yet. (2) Chest pain: Qualifiers: Chest pain type: unspecified Qualified Code(s): R07.9 - Chest pain, unspecified Code(s): R07.9 - Chest pain, unspecified Status: Acute Assessment and Plan: RESOLVED. Differential diagnosis: Chest pain, ACS, Sepsis, Bacteremia, Sepsis due to UTI, PE, Covid 19, Acute Dehydration in ED stated the chest pain is similar to what she had when she had heart problems previously. improved with 324 mg of aspirin and O2 in the ambulance. vomiting, sharp left-sided chest pain, shortness of breath and fever - currently resolved fevers have resolved does not use oxygen at home - her O2 sats were 88% on room air at admission and required supplemental oxygen - 2-3 L of O2 nasal cannula Home o2 walk showed she needed 2 L O2 NC for activity/ambulation. ED EKG showed sinus tach, no concerning ST changes. serial troponins x3 were all normal and serial lactic acid levels improved to normal today continuous cardiac telemetry monitoring in place and vital signs every 4 hours showed no ectopy or concerning arrhythmia or acute waveform heart rate improved from the 110s and 120s down to 90s with rehydration and Antibiotics; restarted metoprolol today with Sepsis resolved. LOW electrolytes at admission, replenished and now normal. BNP wnl at 14.5. ECHO completed, Hx. pericarditis with a pericardial infusion in September of 2010, also history of blood stream infection after the of her child. D-dimer also elevated at 1.75; BLE US showed no DVT + CXR and Chest CTA did not show PE nor pneumonia. (3) UTI (urinary tract infection): Qualifiers: Hematuria presence: without hematuria Urinary tract infection type: site unspecified Qualified Code(s): N39.0 - Urinary tract infection, site not specified Code(s): N39.0 - Urinary tract infection, site not specified Status: Acute Assessment and Plan: no dysuria, denies hematuria, denies abdominal pain, morbid obesity and dehydration and uncontrolled glucose levels contribute to UTIs. white count is 4.4 today, no fevers overnight. urine culture sensitivities showed E coli that was sensitive to Levaquin and also to Rocephin. has been receiving Levaquin since her admission and has completed her course today.
[2020-01-17] MEDS: ONDANSETRON HCL ODT 4 MG TABLET PO ×2 (11:31→20:23)
[2020-01-17 11:53] LABS: Glucose Point of Care 220 (65-105)
[2020-01-17] MEDS: METOPROLOL TARTRATE 25 MG TABLET 12.5 MG PO ×2 (14:08→20:23)
[2020-01-17 16:54] LABS: Glucose Point of Care 176 (65-105)
[2020-01-17] MEDS: ATORVASTATIN 40 MG TABLET 80 MG PO (17:19)
[2020-01-17] MEDS: metFORMIN HCL XR 500 MG TAB.SR.24H 1000 MG PO (17:19)
--- NOTE | 2020-01-17 18:21 | PC.NURSE ---
MD notified that patient is requesting her Hydroxyzine be restarted. Patient also c/o nausea. New orders received.
[2020-01-17] MEDS: hydrOXYzine pamoate 25 MG CAPSULE 50 MG PO (20:23)
[2020-01-17 20:28] LABS: Glucose Point of Care 149 (65-105)
[2020-01-18] VITALS (11 sets, daily range): BP systolic 102–150; BP diastolic 47–77; PULSE 76–105; RESP 18–20; TEMP 36.1–36.6; O2SAT 88–97
[2020-01-18 07:35] LABS: Glucose Point of Care 156 (65-105)
[2020-01-18 08:34] LABS: Basophils Absolute Auto 0.03 K/mm3 (0.00-0.10); Basophils Percent Auto 0.6 % (0.0-1.0); Eosinophils Absolute Auto 0.15 K/mm3 (0.02-0.50); Hemoglobin 12.7 g/dL (12.0-15.0); Immature Granulocyte Absolute 0.05 K/mm3 (0.00-0.00); Lymphocytes Absolute Auto 1.24 K/mm3 (1.10-4.50); Lymphocytes Percent Auto 25.1 % (18.0-42.0); Mean Corpuscular Hemoglobin 27.2 pg (27.0-31.0); Mean Corpuscular Volume 87.8 fL (78.0-102.0); Mean Platelet Volume 10.3 fl (9.2-11.8); Monocytes Absolute Auto 0.38 K/mm3 (0.10-0.90); Monocytes Percent Auto 7.7 % (2.0-11.0); Neutrophils Absolute Auto 3.1 K/mm3 (1.7-7.2); Neutrophils Percent Auto 62.6 % (50.0-70.0); Platelet Count Result 223 K/mm3 (150-420); Red Blood Count 4.67 M/mm3 (4.20-5.40); Red Cell Distribution Width 15.3 % (11.6-14.4)
[2020-01-18 08:53] LABS: Alanine Aminotransferase 31 U/L (14-59); Albumin Level 2.7 g/dL (3.4-5.0); Alkaline Phosphatase 113 U/L (46-116); Anion Gap 5 mmol/L (8-16); Aspartate Amino Transferase 27 U/L (15-37); Bilirubin,Total 0.3 mg/dL (0.00-1.00); Blood Urea Nitrogen 7 mg/dL (7-18); Calcium 8.6 mg/dL (8.5-10.1); Carbon Dioxide 32 mmol/L (21-32); Chloride 102 mmol/L (98-108); Estimated CRCL calculation 95 ml/min; Estimated Glomerular Filt Rate 59; Glucose 178 mg/dL (70-99); Osmolality Calculated 290 mOsm/kg (285-295); Potassium 4.1 mmol/L (3.5-5.1); Sodium 139 mmol/L (136-145); Total Protein 6.6 g/dL (6.4-8.2)
[2020-01-18] MEDS: LIDOCAINE 5% PATCH 2 PATCH TRANSDERM (08:55)
[2020-01-18] MEDS: metFORMIN HCL XR 500 MG TAB.SR.24H 1000 MG PO ×2 (08:56→17:02)
[2020-01-18] MEDS: ENOXAPARIN 40 MG/0.4 ML SYRINGE SUB-Q (08:56)
[2020-01-18] MEDS: ASPIRIN 325 MG ENTERIC TABLET PO (08:57)
[2020-01-18] MEDS: VENLAFAXINE HCL XR 75 MG CAP.ER.24H 150 MG PO ×2 (08:57→17:03)
[2020-01-18] MEDS: MAGNESIUM OXIDE 400 MG TABLET PO (08:58)
[2020-01-18] MEDS: METOPROLOL TARTRATE 25 MG TABLET 12.5 MG PO ×2 (08:58→20:36)
[2020-01-18] MEDS: buPROPion HCL XL (24 HR) 150 MG TABCR 300 MG PO (08:58)
[2020-01-18] MEDS: TOLNAFTATE 1% POWDER 45 GM BTL 1 APPLIC TOPICAL ×2 (09:02→20:36)
--- NOTE | 2020-01-18 10:29 | PM.IMPN ---
Progress Note: A&P Assessment and Plan (1) Sepsis: Qualifiers: Acute renal failure type: unspecified Sepsis acute organ dysfunction status: with acute organ dysfunction Sepsis type: sepsis due to unspecified organism Severe sepsis acute organ dysfunction type: acute renal failure Severe sepsis shock status: without septic shock Qualified Code(s): A41.9 - Sepsis, unspecified organism; R65.20 - Severe sepsis without septic shock; N17.9 - Acute kidney failure, unspecified Code(s): A41.9 - Sepsis, unspecified organism Status: Acute Assessment and Plan: RESOLVED. likely dehydration paired with bacteremia and UTI Sepsis due to Fevers, Tachycardia, Leukocytosis, ARF, Hypoxemia (newly requiring supplemental O2 NC), UA with evidence of UTI, blood cx with bacterial growth. aggressive IV hydration and boluses completed - now on oral hydration replenishment of electrolytes completed lactic levels now WNL, renal function labs now WNL continuous cardiac telemetry monitoring and vital signs every 4 hours - stable no ectopy - restarted Metoprolol advancing diet as tolerated controlling glucose levels - change from low-dose sliding scale to moderate dose sliding scale insulin yesterday - able to restart Metformin today. treating with IV antibiotics, Levaquin course completed, now on IV Rocephin [address] angio ruled out PE and pneumonia/infection, ECHO ruled out pericardial effusion and no evidence of vegetation. ESR 28 , up to 32 CRP improved from >11.0 to 9.3 Urine culture showed E.Coli with sensitivities to Levaquin and to Rocephin. Waiting for BLood Culture Sensitivities yet. (2) Chest pain: Qualifiers: Chest pain type: unspecified Qualified Code(s): R07.9 - Chest pain, unspecified Code(s): R07.9 - Chest pain, unspecified Status: Acute Assessment and Plan: RESOLVED. Differential diagnosis: Chest pain, ACS, Sepsis, Bacteremia, Sepsis due to UTI, PE, Covid 19, Acute Dehydration in ED stated the chest pain is similar to what she had when she had heart problems previously. improved with 324 mg of aspirin and O2 in the ambulance. vomiting, sharp left-sided chest pain, shortness of breath and fever - currently resolved fevers have resolved does not use oxygen at home - her O2 sats were 88% on room air at admission and required supplemental oxygen - 2-3 L of O2 nasal cannula Home o2 walk showed she needed 2 L O2 NC for activity/ambulation. ED EKG showed sinus tach, no concerning ST changes. serial troponins x3 were all normal and serial lactic acid levels improved to normal today continuous cardiac telemetry monitoring in place and vital signs every 4 hours showed no ectopy or concerning arrhythmia or acute waveform heart rate improved from the 110s and 120s down to 90s with rehydration and Antibiotics; restarted metoprolol today with Sepsis resolved. LOW electrolytes at admission, replenished and now normal. BNP wnl at 14.5. ECHO completed, Hx. pericarditis with a pericardial infusion in September of 2010, also history of blood stream infection after the of her child. D-dimer also elevated at 1.75; BLE US showed no DVT + CXR and Chest CTA did not show PE nor pneumonia. (3) UTI (urinary tract infection): Qualifiers: Hematuria presence: without hematuria Urinary tract infection type: site unspecified Qualified Code(s): N39.0 - Urinary tract infection, site not specified Code(s): N39.0 - Urinary tract infection, site not specified Status: Acute Assessment and Plan: TREATED. no dysuria, denies hematuria, denies abdominal pain, morbid obesity and dehydration and uncontrolled glucose levels contribute to UTIs. white count is 4.4 yesterday, and 5.0 today no fevers overnight. urine culture sensitivities showed E coli that was sensitive to Levaquin and also to Rocephin. received Levaquin since her admission and has completed her course
[2020-01-18] MEDS: ONDANSETRON HCL ODT 4 MG TABLET PO (10:46)
--- NOTE | 2020-01-18 10:47 | PC.NURSE ---
telemetry discontinued, zofran given for nausea
[2020-01-18 11:36] LABS: Glucose Point of Care 162 (65-105)
--- NOTE | 2020-01-18 15:35 | PC.NURSE ---
Resting in bed, no results on blood culture, no discharge today
--- NOTE | 2020-01-18 16:18 | HOMEO2EVAL ---
Home Oxygen Evaluation RC: Home Oxygen (O2) Evaluation Start: 01/18/20 15:41 Freq: ONCE Status: Active Protocol: RPE Activity Type Activity Date Activity User E-Sign Co-Sign Detail Recorded Client Recorded Date Recorded By Document 01/18/20 15:55 JUAN [id number] 01/18/20 16:17 JUAN Document 01/18/20 15:58 JUAN [id number] 01/18/20 16:17 JUAN Document 01/18/20 16:00 JUAN [id number] 01/18/20 16:17 JUAN 01/18/20 01/18/20 01/18/20 15:55 15:58 16:00 Home O2 Evaluation Test Phase Resting Exercise Exercise Oxygen Delivery Room Air Room Air Nasal Cannula Oxygen Flow Rate (L/min) 2 Pulse Oximetry (90-100 %) 96 88 L 94 Pulse Rate (60-100 beats/min) 85 105 H 95 Activity Tolerance Excellent Fair Good Rating of Perceived Dyspnea (PD) +2 Mild, Some +2 Mild, Some Difficulty, Difficulty, Noticeable to Noticeable to the Observer the Observer Rate of Perceived Exertion (PE) 15 Hard 13 Somewhat Hard Ambulation Distance (feet) 150 150 Home Oxygen Evaluation Comments Desat to 88% Finished walk after walking/ on 2 lpm. Garcia. pushing wheel well with Sp02 chair 150 feet. at 94%. Sat in w/c to rest x 3 min. Oxygen per n/c started at 2 lpm Treatment Charges O2 Evaluation
[2020-01-18] MEDS: ATORVASTATIN 40 MG TABLET 80 MG PO (17:03)
[2020-01-18 17:08] LABS: Glucose Point of Care 122 (65-105)
--- NOTE | 2020-01-18 18:04 | PC.NURSE ---
Starting to have some loose stools, no vomiting, able to get up to bathroom per self, does call for assist in cleaning stool off her due to her bathroom at home is set up different
[2020-01-18] MEDS: hydrOXYzine pamoate 25 MG CAPSULE 50 MG PO (20:36)
[2020-01-18 20:57] LABS: Glucose Point of Care 174 (65-105)
[2020-01-19] VITALS (7 sets, daily range): BP systolic 121–144; BP diastolic 59–70; PULSE 74–86; RESP 18–20; TEMP 36.1–36.6; O2SAT 95–98
--- NOTE | 2020-01-19 01:43 | PM.EVENT ---
Event Note Event Note Event Note: For 01/18/20: I have examined the patient and reviewed chart. I discussed the patient's care with A Jarad RICHARDSON and agree with her assessment and plan.
--- NOTE | 2020-01-19 02:02 | PC.NURSE ---
Dr. Canales notified of pt's c/o diarrhea; New orders received and noted.
[2020-01-19 07:36] LABS: Glucose Point of Care 151 (65-105)
[2020-01-19] MEDS: VENLAFAXINE HCL XR 75 MG CAP.ER.24H 150 MG PO ×2 (09:12→17:05)
[2020-01-19] MEDS: metFORMIN HCL XR 500 MG TAB.SR.24H 1000 MG PO ×2 (09:12→17:05)
[2020-01-19] MEDS: ASPIRIN 325 MG ENTERIC TABLET PO (09:12)
[2020-01-19] MEDS: METOPROLOL TARTRATE 25 MG TABLET 12.5 MG PO ×2 (09:13→20:51)
[2020-01-19] MEDS: MAGNESIUM OXIDE 400 MG TABLET PO (09:13)
[2020-01-19] MEDS: buPROPion HCL XL (24 HR) 150 MG TABCR 300 MG PO (09:14)
[2020-01-19] MEDS: ENOXAPARIN 40 MG/0.4 ML SYRINGE SUB-Q (09:14)
[2020-01-19] MEDS: TOLNAFTATE 1% POWDER 45 GM BTL 1 APPLIC TOPICAL ×2 (09:15→20:57)
[2020-01-19 10:29] LABS: Hemoglobin 12.7 g/dL (12.0-15.0); Mean Corpuscular Volume 87.2 fL (78.0-102.0); Mean Platelet Volume 10.5 fl (9.2-11.8); Platelet Count Result 236 K/mm3 (150-420); Red Cell Distribution Width 15.5 % (11.6-14.4); White Blood Count 5.8 K/mm3 (4.8-10.8)
[2020-01-19 10:42] LABS: Alanine Aminotransferase 62 U/L (14-59); Albumin Level 2.8 g/dL (3.4-5.0); Alkaline Phosphatase 111 U/L (46-116); Anion Gap 5 mmol/L (8-16); Aspartate Amino Transferase 63 U/L (15-37); Bilirubin,Total 0.3 mg/dL (0.00-1.00); Blood Urea Nitrogen 8 mg/dL (7-18); Calcium 8.5 mg/dL (8.5-10.1); Carbon Dioxide 31 mmol/L (21-32); Chloride 103 mmol/L (98-108); Estimated CRCL calculation 87 ml/min; Estimated Glomerular Filt Rate 53; Glucose 198 mg/dL (70-99); Osmolality Calculated 292 mOsm/kg (285-295); Potassium 4.1 mmol/L (3.5-5.1); Sodium 139 mmol/L (136-145); Total Protein 6.3 g/dL (6.4-8.2)
--- NOTE | 2020-01-19 10:54 | PC.NURSE ---
Up and having another loose stool requesting meds, c diff negative, hospitalist aware and orders received
[2020-01-19] MEDS: LOPERAMIDE HCL 2 MG CAPSULE PO ×3 (10:56→14:22)
[2020-01-19 12:10] LABS: Glucose Point of Care 143 (65-105)
--- NOTE | 2020-01-19 12:30 | PC.NURSE ---
pain redness and leaking to IV site, difficult stick, hospitalist notified and will consider what to give oral, patient agreeable and saline lock removed with cathlon intact
--- NOTE | 2020-01-19 13:04 | WPDPN ---
Progress Note: A&P Assessment and Plan (1) Sepsis: Qualifiers: Acute renal failure type: unspecified Sepsis acute organ dysfunction status: with acute organ dysfunction Sepsis type: sepsis due to unspecified organism Severe sepsis acute organ dysfunction type: acute renal failure Severe sepsis shock status: without septic shock Qualified Code(s): A41.9 - Sepsis, unspecified organism; R65.20 - Severe sepsis without septic shock; N17.9 - Acute kidney failure, unspecified Code(s): A41.9 - Sepsis, unspecified organism Status: Acute Assessment and Plan: RESOLVED. Possibly secondary to urosepsis Patient completed a Levaquin currently on cefdinir due to gram positive cocci in chains and blood culture. UA with growth of E. coli (2) Chest pain: Qualifiers: Chest pain type: unspecified Qualified Code(s): R07.9 - Chest pain, unspecified Code(s): R07.9 - Chest pain, unspecified Status: Acute Assessment and Plan: RESOLVED. Not believed to be cardiac related possibly secondary to sepsis Home o2 walk showed she needed 2 L O2 NC for activity/ambulation. troponins x3 normal lactic acid normal Continue vital signs and telemetry Echo indicates-The left ventricular diastolic function is grade I diastolic dysfunction. Left ventricular systolic function is normal, estimated at 55-60%. D-dimer also elevated at 1.75; BLE US showed no DVT + CXR and Chest CTA did not show PE nor pneumonia. (3) UTI (urinary tract infection): Qualifiers: Hematuria presence: without hematuria Urinary tract infection type: site unspecified Qualified Code(s): N39.0 - Urinary tract infection, site not specified Code(s): N39.0 - Urinary tract infection, site not specified Status: Acute Assessment and Plan: TREATED. With Levaquin Possibly secondary to uncontrolled diabetes. urine culture sensitivities showed E coli that was sensitive to Levaquin and also to Rocephin. received Levaquin since her admission and has completed her course for UTI treatment (had 3 days at 750mg IV). WBCs within normal limits, lactic acid within normal limits CRP improved since the admission will repeat in the a.m. (4) Acute renal failure: Code(s): N17.9 - Acute kidney failure, unspecified Status: Acute Assessment and Plan: RESOLVED. IMPROVED. Secondary to dehydration creatinine at admission was 1.15. Her creatinine in May of 2019 was 0.79. Creatinine TODAY was 1.09 Encourage fluid intake Repeat CMP in a.m. (5) Dehydration: Code(s): E86.0 - Dehydration Status: Acute Assessment and Plan: RESOLVED. Possibly due to her poor oral intake and or vomiting (6) Electrolyte abnormality: Code(s): E87.8 - Other disorders of electrolyte and fluid balance, not elsewhere classified Status: Acute Assessment and Plan: RESOLVED. Repeat CMP in the a.m. Replace electrolytes as needed (7) Buttock wound: Code(s): S31.809A - Unspecified open wound of unspecified buttock, initial encounter Status: Acute Assessment and Plan: IMPROVING with Nursing Care. Present on admission. appears macerated Continue antifungal powder to be applied twice a day skin care dino care ordered. continue to encourage good nutrition for the patient follow up with PCP for re-evaluation of wound in 1-2 weeks. (8) Gram-positive cocci bacteremia: Code(s): R78.81 - Bacteremia Status: Acute Assessment and Plan: ACUTE. WBCs within normal limits patient afebrile been receiving Levaquin since her admission and has completed her course today for UTI treatment (had 3 days at 750mg IV). Continue 2 gm Rocephin IV Q24 hours because 1 set of anaerobic blood cultures showed gram positive cocci in chains Sensitivity pending 2 gm IV rocephin Q 24 hours on 01/16 (9) KIERA (obstructive s
--- NOTE | 2020-01-19 13:19 | PC.NURSE ---
loperamide given for loose stool, ate baked potatoe for lunch, awaiting po antibiotic order
[2020-01-19] MEDS: CEFDINIR 300 MG CAPSULE PO ×2 (14:22→20:51)
--- NOTE | 2020-01-19 14:27 | PC.NURSE ---
loperamide given for loose stool, oral antibiotic started, still waiting on culture report final to be resulted, patient aware, states starting to have pain in rectum, barrier cream applied
[2020-01-19 16:31] LABS: Glucose Point of Care 125 (65-105)
[2020-01-19] MEDS: ATORVASTATIN 40 MG TABLET 80 MG PO (17:05)
--- NOTE | 2020-01-19 18:11 | PC.NURSE ---
Up to void, no stool at this time
--- NOTE | 2020-01-19 19:08 | P.PNCROSS_ITS ---
Event Note Event Note Event Note: For this patient encounter, I reviewed the COMPRESSED AIR PILE DRIVER OPERATOR or PA documentation, treatment plan, and medical decision making; and I had [id number] time with this patient. Last dose of Rocephin 01/17. Started on cefdinir 300 mg BID p.o. today. Will monitor response while awaiting identification of gram positive cocci and sensitivity
--- NOTE | 2020-01-19 19:08 | PM.EVENT ---
Event Note Event Note Event Note: For this patient encounter, I reviewed the SOLUTIONS DEVELOPER or PA documentation, treatment plan, and medical decision making; and I had [id number] time with this patient. Last dose of Rocephin 01/17. Started on cefdinir 300 mg BID p.o. today. Will monitor response while awaiting identification of gram positive cocci and sensitivity
[2020-01-19 21:01] LABS: Glucose Point of Care 142 (65-105)
[2020-01-20] VITALS: BP 138/55; PULSE 76; RESP 20; TEMP 36.1; O2SAT 94
[2020-01-20 06:49] LABS: Hematocrit 39.7 % (35.0-49.0); Hemoglobin 12.4 g/dL (12.0-15.0); Mean Corpuscular HGB Conc 31.2 g/dL (32.0-36.0); Mean Corpuscular Hemoglobin 27.4 pg (27.0-31.0); Mean Corpuscular Volume 87.8 fL (78.0-102.0); Mean Platelet Volume 10.7 fl (9.2-11.8); Platelet Count Result 230 K/mm3 (150-420); Red Blood Count 4.52 M/mm3 (4.20-5.40); Red Cell Distribution Width 15.5 % (11.6-14.4); White Blood Count 6.6 K/mm3 (4.8-10.8)
[2020-01-20 07:04] LABS: Alanine Aminotransferase 71 U/L (14-59); Albumin Level 2.8 g/dL (3.4-5.0); Alkaline Phosphatase 106 U/L (46-116); Anion Gap 4 mmol/L (8-16); Aspartate Amino Transferase 63 U/L (15-37); Bilirubin,Total 0.4 mg/dL (0.00-1.00); Blood Urea Nitrogen 8 mg/dL (7-18); Calcium 8.4 mg/dL (8.5-10.1); Carbon Dioxide 32 mmol/L (21-32); Chloride 104 mmol/L (98-108); Estimated CRCL calculation 98 ml/min; Estimated Glomerular Filt Rate > 60; Glucose 141 mg/dL (70-99); Osmolality Calculated 290 mOsm/kg (285-295); Potassium 4.4 mmol/L (3.5-5.1); Sodium 140 mmol/L (136-145); Total Protein 5.6 g/dL (6.4-8.2)
[2020-01-20 07:30] VITALS: BP 144/60; PULSE 76; RESP 18; TEMP 35.6; O2SAT 97
--- NOTE | 2020-01-20 07:30 | PC.NURSE ---
States overall not feeling well, up independent in room,
[2020-01-20 07:45] LABS: Glucose Point of Care 141 (65-105)
[2020-01-20] MEDS: metFORMIN HCL XR 500 MG TAB.SR.24H 1000 MG PO ×2 (08:24→17:06)
[2020-01-20] MEDS: buPROPion HCL XL (24 HR) 150 MG TABCR 300 MG PO (08:24)
[2020-01-20] MEDS: VENLAFAXINE HCL XR 75 MG CAP.ER.24H 150 MG PO ×2 (08:25→17:04)
[2020-01-20] MEDS: CEFDINIR 300 MG CAPSULE PO ×2 (08:25→20:23)
[2020-01-20] MEDS: ASPIRIN 325 MG ENTERIC TABLET PO (08:25)
[2020-01-20 08:26] VITALS: PULSE 76
[2020-01-20] MEDS: METOPROLOL TARTRATE 25 MG TABLET 12.5 MG PO ×2 (08:26→20:23)
[2020-01-20] MEDS: MAGNESIUM OXIDE 400 MG TABLET PO (08:26)
[2020-01-20] MEDS: ENOXAPARIN 40 MG/0.4 ML SYRINGE SUB-Q (08:27)
[2020-01-20] MEDS: ONDANSETRON HCL ODT 4 MG TABLET PO ×2 (09:02→20:23)
--- NOTE | 2020-01-20 09:02 | PC.NURSE ---
zofran given for nausea
[2020-01-20] MEDS: TOLNAFTATE 1% POWDER 45 GM BTL 1 APPLIC TOPICAL ×2 (09:24→20:24)
--- NOTE | 2020-01-20 09:40 | PC.NURSE ---
To imaging for CT non contrast of abdomen, no vomiting noted
--- NOTE | 2020-01-20 09:51 | PC.NURSE ---
Returned from imaging via wheel chair, no vomiting
--- NOTE | 2020-01-20 09:57 | P.PNCROSS_ITS ---
Event Note Event Note Event Note: If no bowel syndrome discharge irritable bowel syndrome irritable bowel syndrome center irritable bowel Follow up with you Provider in 1-2 week. When do I need to call the doctor? Problem or pain when swallowing More throwing up or throwing up fluid that looks like blood or coffee grounds Pain in the chest or upper part of the belly Very bad heartburn that lasts for a long time Cough, hoarseness of voice, or bad breath Problem with breathing Weight loss or not wanting to eat [place] kidney stone discharge orthostatic hypertension orthostatic hypotension
[2020-01-20 10:19] LABS: Bilirubin Direct 0.1 mg/dL (0-0.2)
[2020-01-20] MEDS: hydrOXYzine pamoate 25 MG CAPSULE 50 MG PO (10:21)
--- NOTE | 2020-01-20 10:23 | PC.NURSE ---
vistaril given for dry heaves, awaiting ct and culture reports
--- NOTE | 2020-01-20 10:48 | P.PN_ITS ---
Progress Note: A&P Assessment and Plan (1) Sepsis: Qualifiers: Acute renal failure type: unspecified Sepsis acute organ dysfunction status: with acute organ dysfunction Sepsis type: sepsis due to unspecified or ganism Severe sepsis acute organ dysfunction type: acute renal failure Severe sepsis shock status: without septic shock Qualified Code(s): A41.9 - Sepsis, unspecified organism; R65.20 - Severe sepsis without septic shock; N17.9 - Acute kidney failure, unspecified Code(s): A41.9 - Sepsis, unspecified organism Status: Acute Assessment and Plan: * RESOLVED. * Possibly secondary to urosepsis * Patient completed a Levaquin currently on cefdinir due to gram positive cocci in chains and blood culture. * UA with growth of E. coli (2) Chest pain: Qualifiers: Chest pain type: unspecified Qualified Code(s): R07.9 - Chest pain, unspecified Code(s): R07.9 - Chest pain, unspecified Status: Acute Assessment and Plan: * RESOLVED. * Not believed to be cardiac related possibly secondary to sepsis * Home o2 walk showed she needed 2 L O2 NC for activity/ambulation. * troponins x3 normal lactic acid normal * Continue vital signs and telemetry * Echo indicates-The left ventricular diastolic function is grade I diastolic dysfunction. Left ventricular systolic function is normal, estimated at 55- 60%. * D-dimer also elevated at 1.75; BLE US showed no DVT + CXR and Chest CTA did not show PE nor pneumonia. (3) UTI (urinary tract infection): Qualifiers: Hematuria presence: without hematuria Urinary tract infection type: site unspecified Qualified Code(s): N39.0 - Urinary tract infection, site not specified Code(s): N39.0 - Urinary tract infection, site not specified Status: Acute Assessment and Plan: * TREATED. With Levaquin * Possibly secondary to uncontrolled diabetes. * urine culture sensitivities showed E coli that was sensitive to Levaquin and also to Rocephin. * received Levaquin since her admission and has completed her course for UTI treatment (had 3 days at 750mg IV). * WBCs within normal limits, lactic acid within normal limits * CRP improved since the admission will repeat in the a.m. (4) Acute renal failure: Code(s): N17.9 - Acute kidney failure, unspecified Status: Acute Assessment and Plan: * RESOLVED. IMPROVED. * Secondary to dehydration * creatinine at admission was 1.15. Her creatinine in May of 2019 was 0.79. Creatinine TODAY WNL * Encourage fluid intake * Repeat CMP in a.m. (5) Dehydration: Code(s): E86.0 - Dehydration Status: Acute Assessment and Plan: * RESOLVED. * Possibly due to her poor oral intake and or vomiting (6) Electrolyte abnormality: Code(s): E87.8 - Other disorders of electrolyte and fluid balance, not elsewhere cla ssified Status: Acute Assessment and Plan: * RESOLVED. * Repeat CMP in the a.m. * Replace electrolytes as needed (7) Buttock wound: Code(s): S31.809A - Unspecified open wound of unspecified buttock, initial encounter Status: Acute Assessment and Plan: * IMPROVING with Nursing Care. Present on admission. * appears macerated * Continue antifungal powder to be applied twice a day * skin care dino care ordered. * continue to encourage good nutrition for the patient * follow up with PCP for re-evaluation of wound in 1-2 weeks. (8) Gram-positive cocci bacteremia: Code(s): R78.81 - Bacte
[2020-01-20 11:22] LABS: Bilirubin Indirect 0.3 mg/dL (0-1.0); GGT 50 U/L (5-55)
[2020-01-20 11:30] LABS: Glucose Point of Care 123 (65-105)
[2020-01-20 11:43] LABS: Ammonia < 10 umol/L (11-32); Ferritin 87 ng/mL (8-252); Folic Acid 6.6 ng/mL (8.6->20); Iron 49 ug/dL (50-170); Percent Iron Saturation 15 % (12-57); Vitamin B12 281 pg/mL (193-986)
--- NOTE | 2020-01-20 12:50 | PC.NURSE ---
refused lunch, still nauseated, no emesis noted,
[2020-01-20 15:45] VITALS: BP 169/69; PULSE 76; RESP 18; TEMP 36.1; O2SAT 97
[2020-01-20] MEDS: LOPERAMIDE HCL 2 MG CAPSULE PO (16:09)
--- NOTE | 2020-01-20 16:09 | PC.NURSE ---
loose stool, loperamide given
[2020-01-20 16:58] LABS: Glucose Point of Care 97 (65-105)
[2020-01-20] MEDS: ATORVASTATIN 40 MG TABLET 80 MG PO (17:05)
--- NOTE | 2020-01-20 18:20 | PC.NURSE ---
no vomiting since dinner, did give crackers to eat at 1630 before meds given at 1700 due to nasuea today after am meds
[2020-01-20 20:23] VITALS: PULSE 66
[2020-01-20 21:07] LABS: Glucose Point of Care 141 (65-105)
[2020-01-21] VITALS (7 sets, daily range): BP systolic 101–127; BP diastolic 53–61; PULSE 72–102; RESP 16–20; TEMP 35.6–36.4; O2SAT 91–97
[2020-01-21 06:02] LABS: Hematocrit 40.8 % (35.0-49.0); Hemoglobin 12.6 g/dL (12.0-15.0); Mean Corpuscular HGB Conc 30.9 g/dL (32.0-36.0); Mean Corpuscular Hemoglobin 27.1 pg (27.0-31.0); Mean Corpuscular Volume 87.7 fL (78.0-102.0); Mean Platelet Volume 10.5 fl (9.2-11.8); Platelet Count Result 243 K/mm3 (150-420); Red Blood Count 4.65 M/mm3 (4.20-5.40); Red Cell Distribution Width 15.3 % (11.6-14.4); White Blood Count 7.2 K/mm3 (4.8-10.8)
[2020-01-21 06:30] LABS: Alanine Aminotransferase 94 U/L (14-59); Albumin Level 2.9 g/dL (3.4-5.0); Alkaline Phosphatase 106 U/L (46-116); Anion Gap 4 mmol/L (8-16); Aspartate Amino Transferase 85 U/L (15-37); Bilirubin,Total 0.4 mg/dL (0.00-1.00); Blood Urea Nitrogen 9 mg/dL (7-18); Calcium 8.3 mg/dL (8.5-10.1); Carbon Dioxide 31 mmol/L (21-32); Chloride 103 mmol/L (98-108); Estimated CRCL calculation 90 ml/min; Estimated Glomerular Filt Rate 55; Glucose 131 mg/dL (70-99); Magnesium 1.9 mg/dL (1.8-2.4); Osmolality Calculated 286 mOsm/kg (285-295); Potassium 4.3 mmol/L (3.5-5.1); Sodium 138 mmol/L (136-145); Total Protein 5.8 g/dL (6.4-8.2)
[2020-01-21] MEDS: buPROPion HCL XL (24 HR) 150 MG TABCR 300 MG PO (08:26)
[2020-01-21] MEDS: ASPIRIN 325 MG ENTERIC TABLET PO (08:26)
[2020-01-21] MEDS: CEFDINIR 300 MG CAPSULE PO (08:26)
[2020-01-21] MEDS: ENOXAPARIN 40 MG/0.4 ML SYRINGE SUB-Q (08:26)
[2020-01-21] MEDS: MAGNESIUM OXIDE 400 MG TABLET PO (08:27)
[2020-01-21] MEDS: metFORMIN HCL XR 500 MG TAB.SR.24H 1000 MG PO (08:27)
[2020-01-21] MEDS: LIDOCAINE 5% PATCH 2 PATCH TRANSDERM (08:27)
[2020-01-21] MEDS: METOPROLOL TARTRATE 25 MG TABLET 12.5 MG PO (08:28)
[2020-01-21] MEDS: VENLAFAXINE HCL XR 75 MG CAP.ER.24H 150 MG PO (08:28)
[2020-01-21] MEDS: hydrOXYzine pamoate 25 MG CAPSULE 50 MG PO (08:30)
[2020-01-21] MEDS: TOLNAFTATE 1% POWDER 45 GM BTL 1 APPLIC TOPICAL (08:37)
--- NOTE | 2020-01-21 11:13 | HOMEO2EVAL ---
Home Oxygen Evaluation RC: Home Oxygen (O2) Evaluation Start: 01/21/20 10:55 Freq: ONCE Status: Active Protocol: RPE Activity Type Activity Date Activity User E-Sign Co-Sign Detail Recorded Client Recorded Date Recorded By Document 01/21/20 11:00 MARIZOL [id number] 01/21/20 11:13 SJB Document 01/21/20 11:01 SJB [id number] 01/21/20 11:13 SJB Document 01/21/20 11:11 SJB [id number] 01/21/20 11:13 SJB 01/21/20 01/21/20 01/21/20 11:00 11:01 11:11 Home O2 Evaluation Test Phase Resting Exercise Oxygen Delivery Room Air Nasal Cannula Oxygen Flow Rate (L/min) 2 Pulse Oximetry (90-100 %) 92 91 96 Pulse Rate (60-100 beats/min) 86 92 102 H Activity Tolerance Good Rating of Perceived Dyspnea (PD) +1 Mild, +2 Mild, Some Noticeable to Difficulty, the Participant Noticeable to but Not to an the Observer Observer Rate of Perceived Exertion (PE) 13 Somewhat Hard Ambulation Distance (feet) 125 250 Home Oxygen Evaluation Comments GETTING READY PT HAD TO STOP 02 SATS TO WALK FOR O2 FOR REST, SP02 REMAINED 95% EVAL DROPPED TO 87%. AND ABOVE THE 02 START AT 2 REST OF THE LPM. WALK ON 2LPM. PLB WAS USED. Treatment Charges O2 Evaluation
[2020-01-21 11:31] LABS: Glucose Point of Care 138 (65-105)
--- NOTE | 2020-01-21 12:14 | P.DS_ITS ---
DS: Admitting Diagnosis Admitting Diagnosis Admitting Diagnosis: sepsis uti chest pain <Abhay Neumann GAME PROGRAMMER-C - Last Filed: 01/21/20 12:24> DS: Discharge Diagnosis Discharge Diagnosis (1) Sepsis: Qualifiers: Acute renal failure type: unspecified Sepsis acute organ dysfunction status: with acute organ dysfunction Sepsis type: sepsis due to unspecified organism Severe sepsis acute organ dysfunction type: acute renal f ailure Severe sepsis shock status: without septic shock Qualified Code(s): A41.9 - Sepsis, unspecified organism; R65.20 - Severe sepsis without septic shock; N17.9 - Acute kidney failure, unspecified <Abhay Scott Thien GAME PROGRAMMER-C - Last Filed: 01/21/20 12:24> Code(s): A41.9 - Sepsis, unspecified organism <Abhay Neumann GAME PROGRAMMER-C - Last Filed: 01/21/20 12:24> Status: Acute <Abhay AminDUSTIN Shannon - Last Filed: 01/21/20 12:24> Assessment and Plan: * RESOLVED. * Possibly secondary to urosepsis * Patient completed a Levaquin currently on cefdinir due to gram positive cocci in chains and blood culture. patient will discharge home with 7 days of Omnicef * UA with growth of E. coli <Abhay AminDUSTIN Shannon - Last Filed: 01/21/20 12:24> (2) Chest pain: Qualifiers: Chest pain type: unspecified Qualified Code(s): R07.9 - Chest pain, unspecified <Abhay AminAmy Neumann GAME PROGRAMMER-C - Last Filed: 01/21/20 12:24> Code(s): R07.9 - Chest pain, unspecified <Abhay AminAmy Neumann GAME PROGRAMMER-Nani - Last Filed: 01/21/20 12:24> Status: Acute <Abhay NeumannDUSTIN - Last Filed: 01/21/20 12:24> Assessment and Plan: * RESOLVED. * Not believed to be cardiac related possibly secondary to sepsis * Home o2 walk showed she needed 2 L O2 NC for activity/ambulation. * troponins x3 normal lactic acid normal * Continue vital signs and telemetry * Echo indicates-The left ventricular diastolic function is grade I diastolic dysfunction. Left ventricular systolic function is normal, estimated at 55- 60%. * D-dimer also elevated at 1.75; BLE US showed no DVT + CXR and Chest CTA did not show PE nor pneumonia. <DUSTIN Bhakta - Last Filed: 01/21/20 12:24> (3) UTI (urinary tract infection): Qualifiers: Hematuria presence: without hematuria Urinary tract infection type: site unspecified Qualified Code(s): N39.0 - Urinary tract infection, site not specified <DUSTIN Bhakta - Last Filed: 01/21/20 12:24> Code(s): N39.0 - Urinary tract infection, site not specified <DUSTIN Bhakta - Last Filed: 01/21/20 12:24> Status: Acute <DUSTIN Bhakta - Last Filed: 01/21/20 12:24> Assessment and Plan: * TREATED. With Levaquin * Possibly secondary to uncontrolled diabetes. * urine culture sensitivities showed E coli that was sensitive to Levaquin and also to Rocephin. * received Levaquin since her admission and has completed her course for UTI treatment (had 3 days at 750mg IV). * WBCs within normal limits, lactic acid within normal limits * CRP improved since the admission will repeat in the a.m. <DUSTIN Bhakta - Last Filed: 01/21/20 12:24> (4) Acute renal failure: Code(s): N17.9 - Acute kidney failure, unspecified <Abhay Neumann DUSTIN - Last Filed: 01/21/20 12:24> Status: Acute <Abhay Neumann DUSTIN - Last Filed: 01/21/20 12:24> Assessment and Plan: * RESOLVED. IMPROVED. * Secondary to dehydration * creatinine at admission was 1.15. Her creatinine in May of 2019 was 0 .79. Creatinine TODAY
--- NOTE | 2020-01-21 12:14 | PM.DS ---
DS: Admitting Diagnosis Admitting Diagnosis Admitting Diagnosis: sepsis uti chest pain <Abhay AminZACH Shannon-C - Last Filed: 01/21/20 12:24> DS: Discharge Diagnosis Discharge Diagnosis (1) Sepsis: Qualifiers: Acute renal failure type: unspecified Sepsis acute organ dysfunction status: with acute organ dysfunction Sepsis type: sepsis due to unspecified organism Severe sepsis acute organ dysfunction type: acute renal failure Severe sepsis shock status: without septic shock Qualified Code(s): A41.9 - Sepsis, unspecified organism; R65.20 - Severe sepsis without septic shock; N17.9 - Acute kidney failure, unspecified <Ahbay AminZACH Shannon-C - Last Filed: 01/21/20 12:24> Code(s): A41.9 - Sepsis, unspecified organism <Abhay AminLOVELY ShannonC - Last Filed: 01/21/20 12:24> Status: Acute <Abhay BrennanLOVELY ShannonC - Last Filed: 01/21/20 12:24> Assessment and Plan: RESOLVED. Possibly secondary to urosepsis Patient completed a Levaquin currently on cefdinir due to gram positive cocci in chains and blood culture. patient will discharge home with 7 days of Omnicef UA with growth of E. coli <DUSTIN Bhakta - Last Filed: 01/21/20 12:24> (2) Chest pain: Qualifiers: Chest pain type: unspecified Qualified Code(s): R07.9 - Chest pain, unspecified <DUSTIN Bhakta - Last Filed: 01/21/20 12:24> Code(s): R07.9 - Chest pain, unspecified <Abhay AminZACH Shannon-C - Last Filed: 01/21/20 12:24> Status: Acute <ZACH Bhakta-Nani - Last Filed: 01/21/20 12:24> Assessment and Plan: RESOLVED. Not believed to be cardiac related possibly secondary to sepsis Home o2 walk showed she needed 2 L O2 NC for activity/ambulation. troponins x3 normal lactic acid normal Continue vital signs and telemetry Echo indicates-The left ventricular diastolic function is grade I diastolic dysfunction. Left ventricular systolic function is normal, estimated at 55-60%. D-dimer also elevated at 1.75; BLE US showed no DVT + CXR and Chest CTA did not show PE nor pneumonia. <DUSTIN Bhakta - Last Filed: 01/21/20 12:24> (3) UTI (urinary tract infection): Qualifiers: Hematuria presence: without hematuria Urinary tract infection type: site unspecified Qualified Code(s): N39.0 - Urinary tract infection, site not specified <Abhay BrennanDUSTIN Shannon - Last Filed: 01/21/20 12:24> Code(s): N39.0 - Urinary tract infection, site not specified <DUSTIN Bhakta - Last Filed: 01/21/20 12:24> Status: Acute <DUSTIN Bhakta - Last Filed: 01/21/20 12:24> Assessment and Plan: TREATED. With Levaquin Possibly secondary to uncontrolled diabetes. urine culture sensitivities showed E coli that was sensitive to Levaquin and also to Rocephin. received Levaquin since her admission and has completed her course for UTI treatment (had 3 days at 750mg IV). WBCs within normal limits, lactic acid within normal limits CRP improved since the admission will repeat in the a.m. <DUSTIN Bhakta - Last Filed: 01/21/20 12:24> (4) Acute renal failure: Code(s): N17.9 - Acute kidney failure, unspecified <DUSTIN Bhakta - Last Filed: 01/21/20 12:24> Status: Acute <DUSTIN Bhakta - Last Filed: 01/21/20 12:24> Assessment and Plan: RESOLVED. IMPROVED. Secondary to dehydration creatinine at admission was 1.15. Her creatinine in May of 2019 was 0.79. Creatinine TODAY WNL Encourage fluid intake Repeat CMP in a.m. <DUSTIN Bhakta - Last Filed: 01/21/20 12:24> (5) Dehydration: Code(s): E86.0 - Dehydration <DUSTIN Bhakta - Last Filed: 01/21/20 12:24> Status: Acute <LOVELY BhaktaC - Last Filed: 01/21/20 12:24> Assessment and Plan: RESOL
[2020-01-22 13:47] LABS: Actin Antibody (IgG) <20 U (<20)
[2020-01-23 19:23] LABS: Hepatitis A Antibody IgM Nonreactive; Hepatitis B Surface Antibody Nonreactive (Nonreactive)
[2020-01-23 20:00] LABS: Hepatitis B Core Antibody Nonreactive (Nonreactive)
[2020-01-24 06:11] LABS: Ceruloplasmin 39 mg/dL (18-53)
== END 2020-01-21 13:30 | disposition home or self-care (01) | DRG 720 ==
LOC: CHSED 09:12 → CHS2ND 09:55
PROVIDERS: Nurse Practitioner; Admitting Provider Emergency Medicine; Emergency Provider Emergency Medicine; PCP Internal Medicine; Visit Provider Emergency Medicine
DX: A40.8 Other streptococcal sepsis (principal); R65.20 Severe sepsis without septic shock; N17.9 Acute kidney failure, unspecified; N39.0 Urinary tract infection, site not specified; I10 Essential (primary) hypertension; E78.5 Hyperlipidemia, unspecified; E66.01 Morbid (severe) obesity due to excess calories; F32.9 Major depressive disorder, single episode, unspecified; G47.33 Obstructive sleep apnea (adult) (pediatric); F41.9 Anxiety disorder, unspecified; Z95.5 Presence of coronary angioplasty implant and graft; Z20.828 Contact with and (suspected) exposure to other viral communicable diseases; E86.0 Dehydration; I25.10 Atherosclerotic heart disease of native coronary artery without angina pectoris; E11.9 Type 2 diabetes mellitus without complications; E83.42 Hypomagnesemia; S31.809A Unspecified open wound of unspecified buttock, initial encounter; R74.8 Abnormal levels of other serum enzymes; R09.02 Hypoxemia; R07.9 Chest pain, unspecified; Z87.891 Personal history of nicotine dependence
CPT/HCPCS: 36415; 71045; 71275; 74176; 76705; 80048; 80053; 80061; 81001; 82104; 82140; 82248; 82390; 82550; 82553; 82607; 82728; 82746; 82977; 83036; 83516; 83540; 83550; 83605; 83615; 83690; 83735; 83880; 84100; 84443; 84484; 85025; 85027; 85380; 85610; 85652; 85730; 86140; 86705; 86706; 87040; 87077; 87086; 87088; 87186; 87324; 87635; 89055; 93005; 93970; 94618; 96365; 96375; 97161; 97165; 99285; A9270; C8929; C9803; J0696; J1650; J1815; J1956; J2270; J2405; J3475; J7030; J7050; Q9965; U0003

== ENCOUNTER 2020-02-13 13:44 | Outpatient (CLI) | payer OTHER, SELFPAY ==
[2020-02-13 14:20] LABS: Basophils Absolute Auto 0.05 K/mm3 (0.00-0.10); Basophils Percent Auto 0.5 % (0.0-1.0); Eosinophils Percent Auto 3.1 % (1.0-6.0); Hematocrit 48.1 % (35.0-49.0); Hemoglobin 14.8 g/dL (12.0-15.0); Immature Granulocyte Absolute 0.05 K/mm3 (0.00-0.00); Immature Granulocyte Percent A 0.5 % (0.0-0.0); Lymphocytes Absolute Auto 2.05 K/mm3 (1.10-4.50); Lymphocytes Percent Auto 21.5 % (18.0-42.0); Mean Corpuscular HGB Conc 30.8 g/dL (32.0-36.0); Mean Corpuscular Hemoglobin 26.4 pg (27.0-31.0); Mean Corpuscular Volume 85.7 fL (78.0-102.0); Mean Platelet Volume 10.7 fl (9.2-11.8); Monocytes Percent Auto 6.3 % (2.0-11.0); Neutrophils Absolute Auto 6.5 K/mm3 (1.7-7.2); Neutrophils Percent Auto 68.1 % (50.0-70.0); Platelet Count Result 302 K/mm3 (150-420); Red Blood Count 5.61 M/mm3 (4.20-5.40); Red Cell Distribution Width 14.1 % (11.6-14.4); White Blood Count 9.5 K/mm3 (4.8-10.8)
[2020-02-13 14:56] LABS: Alanine Aminotransferase 31 U/L (14-59); Albumin Level 3.8 g/dL (3.4-5.0); Alkaline Phosphatase 179 U/L (46-116); Anion Gap 6 mmol/L (8-16); Aspartate Amino Transferase 12 U/L (15-37); Bilirubin,Total 0.5 mg/dL (0.00-1.00); Blood Urea Nitrogen 12 mg/dL (7-18); Calcium 9.2 mg/dL (8.5-10.1); Carbon Dioxide 30 mmol/L (21-32); Chloride 101 mmol/L (98-108); Estimated Glomerular Filt Rate 56; Glucose 183 mg/dL (70-99); Osmolality Calculated 288 mOsm/kg (285-295); Potassium 4.9 mmol/L (3.5-5.1); Sodium 137 mmol/L (136-145); Total Protein 7.1 g/dL (6.4-8.2)
== END 2020-02-13 13:45 | disposition home or self-care (01) ==
LOC: CHSLAB 13:46
PROVIDERS: PCP Internal Medicine; Visit Provider Internal Medicine
DX: R19.7 Diarrhea, unspecified (principal); R94.5 Abnormal results of liver function studies; N39.0 Urinary tract infection, site not specified
CPT/HCPCS: 36415; 80053; 85025

== ENCOUNTER 2020-06-30 08:10 | Emergency (ER) | payer OTHER, SELFPAY ==
[2020-06-30] VITALS (41 sets, daily range): BP systolic 104–153; BP diastolic 49–104; PULSE 61–114; RESP 11–26; TEMP 36.3; O2SAT 89–100
--- NOTE | ~2020-06-30 | CT_ITS ---
EXAMINATION: CTA chest PE protocol DATE: 06/30/2020 09:35 THICKENER OPERATOR INDICATION: Chest pain and nausea TECHNIQUE: Computed tomographic angiography (CTA) of the chest was performed with 100 mL Omnipaque-35 0 intravenous contrast. The dose-length product was 985.99 mGy-cm. Maximum intensity projection 3D-re constructions of the aorta and other arteries were constructed by the technologist on a separate work station. Automated exposure control and iterative reconstruction technique were employed. COMPARISON: CT dated 01/15/2020 and 10/09/2010. FINDINGS: Study is technically adequate without evidence for pulmonary embolism. No significant pleur al or pericardial effusion. There is mediastinal lipomatosis. No thoracic lymphadenopathy. No evidenc e for aortic aneurysm or dissection. The upper abdomen is unremarkable. There is a 3 mm right upper l obe nodule. There are 3 left lower lobe nodules measuring up to 6 mm. The pulmonary nodules are stabl e since prior examinations, considered benign. Stable fissural nodule on the minor fissure measuring 4 mm. No focal airspace consolidation. No endobronchial lesions. No acute osseous abnormality. IMPRESSION: 1. No acute cardiopulmonary disease. No evidence for pulmonary embolism. Reviewed, dictated and finalized at location B. KENER OPERATOR
--- NOTE | 2020-06-30 08:14 | ECG_ITS ---
Measurements Intervals [place] Rate: 104 P: 38 AK: 192 QRS: 48 QRSD: 98 T: 19 QT: 332 QTc: 438 Interpretive Statements SINUS TACHYCARDIA LOW QRS VOLTAGE IN PRECORDIAL LEADS BORDERLINE R WAVE PROGRESSION, ANTERIOR LEADS BASELINE ARTIFACT- I, II, III, AVR, AVL, AVF, V1, V3-V4 BORDERLINE ECG Electronically Signed On 06-30-2020 8:35:55 SERVICE AGENT by Serafin Burns D.O.
[2020-06-30] MEDS: NITROGLYCERIN SL 0.4 MG TABLET SUBLINGUAL (08:20)
--- NOTE | 2020-06-30 08:29 | ED.CHESTPAIN ---
HPI - Chest Pain General Chief Complaint: Chest Pain Stated Complaint: ambulance Time Seen by Provider: 06/30/20 08:15 Source: patient, EMS and RN notes reviewed Mode of arrival: ambulatory Limitations: no limitations History of Present Illness HPI narrative: Patient states she has had sharp chest pain that started at 7am today. This has been moderately severe, in under left arm and under left breast. No radiation. it is a sharp stabbing like pain, associated with some mild nausea, and anxiety. Nothing has made this better or worse at home. She has a known history of CAD and stents. Exacerbating factors: nothing Associated symptoms: nausea Treatment prior to arrival: none Risk Factors Coronary artery disease risk factors: diabetes and smoking history Related Data Home Medications Medication Instructions Recorded Confirmed aspirin 325 mg PO DAILY 10/22/19 06/30/20 bupropion HCl 300 mg PO QAM 10/22/19 06/30/20 hydroxyzine pamoate 50 mg PO BID 10/22/19 06/30/20 venlafaxine 150 mg PO BID 10/22/19 06/30/20 metformin [Glucophage XR] 1,000 mg PO BID 06/30/20 06/30/20 metoprolol tartrate 25 mg PO DAILY 06/30/20 06/30/20 Allergies Allergy/AdvReac Type Severity Reaction Status Date / Time No Known Allergies Allergy Verified 11/02/19 10:55 Review of Systems Constitutional: Constitutional: Reports no additional constitutional complaints Eyes: Eyes: Reports no additional eye complaints ENT: Reports system reviewed and no additional complaints, except as documented Cardiovascular: Cardiovascular: Reports no additional cardiovascular complaints Respiratory: Respiratory: Reports no additional respiratory complaints Gastrointestinal: Gastrointestinal: Reports no additional gastrointestinal complaints Genitourinary: Genitourinary: Reports no additional female genitourinary complaints Musculoskeletal: Musculoskeletal: Reports no additional musculoskeletal complaints Integumentary/Breasts: Skin/Breast: Reports system reviewed and no additional complaints, except as docu Neurologic: Reports system reviewed and no additional complaints, except as documented Psychiatric: Psychiatric: Reports no additional psychiatric complaints Endocrine: Endocrine: Reports no additional endocrine complaints Hematologic/Lymphatic: Hematologic/Lymphatic: Reports no additional hematologic/lymphatic complaints Allergic/Immunologic: Allergic/Immunologic: Reports no additional allergic/immunologic complaints PMFSH Past Medical History Medical History Anxiety CAD (coronary artery disease) Depression DVT (deep venous thrombosis) Hyperlipidemia KIERA (obstructive sleep apnea) Super obesity Surgical History Surgical History History of appendectomy History of hysterectomy Hx of cholecystectomy Hx of tubal ligation Stented coronary artery Family History Family History Father No problems noted. Social History Social History Years smoked: 10 Smoking status: Former smoker Tobacco type: cigarettes Alcohol intake: never Substance use: never Gender identity (if verbalized by the patient): Female Spiritual care concerns: No Exam Const: General: cooperative, healthy appearing and comfortable Nutritional Appearance: obese Orientation/consciousness: oriented to person, oriented to place and oriented to time Limitations: no limitations HENMT: Head: normal to inspection Ears: hearing grossly normal bilaterally and TM's normal bilaterally General nose exam: Normal external nose present and Normal nasal mucous membranes and turbinates present Mouth: Yes Normal oral and palatal mucosa present and Yes moist mucous membranes Throat: posterior oropharynx normal Eyes: General: appearance normal, both eyes and all related st
[2020-06-30 08:36] LABS: Basophils Absolute Auto 0.04 K/mm3 (0.00-0.10); Basophils Percent Auto 0.7 % (0.0-1.0); Eosinophils Absolute Auto 0.18 K/mm3 (0.02-0.50); Eosinophils Percent Auto 3.1 % (1.0-6.0); Hematocrit 42.3 % (35.0-49.0); Hemoglobin 13.5 g/dL (12.0-15.0); Immature Granulocyte Absolute 0.02 K/mm3 (0.00-0.00); Immature Granulocyte Percent A 0.3 % (0.0-0.0); Lymphocytes Absolute Auto 1.27 K/mm3 (1.10-4.50); Lymphocytes Percent Auto 22.1 % (18.0-42.0); Mean Corpuscular HGB Conc 31.9 g/dL (32.0-36.0); Mean Corpuscular Hemoglobin 26.9 pg (27.0-31.0); Mean Corpuscular Volume 84.3 fL (78.0-102.0); Mean Platelet Volume 10.5 fl (9.2-11.8); Monocytes Absolute Auto 0.45 K/mm3 (0.10-0.90); Monocytes Percent Auto 7.8 % (2.0-11.0); Neutrophils Absolute Auto 3.8 K/mm3 (1.7-7.2); Platelet Count Result 243 K/mm3 (150-420); Red Blood Count 5.02 M/mm3 (4.20-5.40); Red Cell Distribution Width 14.3 % (11.6-14.4); White Blood Count 5.7 K/mm3 (4.8-10.8)
[2020-06-30] MEDS: ONDANSETRON INJ 4 MG/2 ML VIAL IV PUSH (08:38)
[2020-06-30] MEDS: METOPROLOL TARTRATE INJ 5 MG/5 ML VIAL IV PUSH (08:40)
[2020-06-30 08:52] LABS: BNP 8.6 pg/mL (0-100)
[2020-06-30 08:56] LABS: Alanine Aminotransferase 19 U/L (14-59); Albumin Level 3.2 g/dL (3.4-5.0); Alkaline Phosphatase 129 U/L (46-116); Anion Gap 5 mmol/L (8-16); Aspartate Amino Transferase 11 U/L (15-37); Bilirubin,Total 0.5 mg/dL (0.00-1.00); Blood Urea Nitrogen 13 mg/dL (7-18); Calcium 9.1 mg/dL (8.5-10.1); Carbon Dioxide 33 mmol/L (21-32); Chloride 98 mmol/L (98-108); Estimated CRCL calculation 83 ml/min; Estimated Glomerular Filt Rate 51; Glucose 282 mg/dL (70-99); Magnesium 1.7 mg/dL (1.8-2.4); Osmolality Calculated 292 mOsm/kg (285-295); Potassium 4.5 mmol/L (3.5-5.1); Sodium 136 mmol/L (136-145); Troponin I 13.3 ng/L (0.00-60.4)
[2020-06-30] MEDS: METOPROLOL TARTRATE 25 MG TABLET PO (09:00)
[2020-06-30] MEDS: KETOROLAC 30 MG/ML VIAL (*BKC) IV PUSH (09:07)
[2020-06-30 10:52] LABS: Partial Thromboplastin Time 28.8 SEC (23.90-30.70); Prothrombin Time 10.6 Seconds (9.50-12.10)
--- NOTE | 2020-06-30 12:28 | PC.NURSE ---
pt up to bedside commode.
== END 2020-06-30 12:43 | disposition home or self-care (01) ==
PROVIDERS: Emergency Provider Emergency Medicine; PCP Internal Medicine
DX: R07.89 Other chest pain (principal)
CPT/HCPCS: 36415; 71275; 80053; 83735; 83880; 84484; 85025; 85380; 85610; 85730; 93005; 96374; 96375; 99283; 99284; A9270; J1885; J2405; Q9967

== ENCOUNTER 2020-12-01 07:31 | Outpatient (CLI) | payer OTHER, SELFPAY ==
--- NOTE | 2020-12-01 09:10 | EST_ITS ---
Patient Info Name: Vanesa Irvin Age: 50 years : 1970 Gender: Female Ht: 62 in Wt: 342 lbs BSA: 2.72 m2 HR: 106 bpm BP: 190 / 72 mmHg Heart Rhythm: Tachycardia Technical Quality: Good Exam Date: 12/01/2020 9:03 AM Exam Location: [facility] Patient Status: Outpatient Admit Date: 12/01/2020 Staff Ordering Physician: Luiza, Tina Zuniga APRN Attending Provider: Luiza, Tina Zuniga APRN Exercise Technologist: Perla Mg CRT Exercise Physician: Angela Mendoza CEP Exam Type: CA stress moises w NM Study Info Indications ChestPain - A nuclear stress test was performed. History/Risk Factors Hypertension: Yes Myocardial Infarction ([place]): No Obesity: Yes Diabetes Mellitus: Yes Tobacco Use: Former History/Risk Factors Hypertension. Obesity. Diabetes. Frailty Scale (CSHA): 4: Vulnerable Summary 1. 1. Negative lexiscan stress test for ischemic ST changes by ECG criteria. 2. 2. Baseline hypertension with hypertensive response to lexiscan. 3. 3. Nuclear scan to follow and will be reported separately. Please correlate with it. Protocol: LEXISCAN Stress ECG Details Stage: REST Duration (min): 2 min : 22 sec HR (bpm): 108 SBP (mmHg): 190 DBP (mmHg): 72 Stage: REST Duration (min): 8 min : 16 sec HR (bpm): 102 SBP (mmHg): 190 DBP (mmHg): 72 Stage: STAGE 1 Duration (min): 0 min : 8 sec HR (bpm): 103 SBP (mmHg): 190 DBP (mmHg): 72 Stage: RECOVERY Duration (min): 0 min : 51 sec HR (bpm): 128 SBP (mmHg): 190 DBP (mmHg): 72 Stage: RECOVERY Duration (min): 1 min : 51 sec HR (bpm): 117 SBP (mmHg): 190 DBP (mmHg): 72 Stage: RECOVERY Duration (min): 2 min : 51 sec HR (bpm): 117 SBP (mmHg): 222 DBP (mmHg): 72 Stage: RECOVERY Duration (min): 3 min : 51 sec HR (bpm): 111 SBP (mmHg): 239 DBP (mmHg): 77 Stage: RECOVERY Duration (min): 4 min : 51 sec HR (bpm): 109 SBP (mmHg): 239 DBP (mmHg): 77 Stage: RECOVERY Duration (min): 5 min : 51 sec HR (bpm): 111 SBP (mmHg): 236 DBP (mmHg): 75 Stage: RECOVERY Duration (min): 6 min : 10 sec HR (bpm): 113 SBP (mmHg): 236 DBP (mmHg): 75 Rest HR: 102 bpm Peak HR: 128 bpm Rest Sys BP: 190 mmHg Peak Sys BP: 246 mmHg Max Pred HR: 168 bpm % Max Pred HR: 76 % Target HR: 143 bpm Max RPP: 31,488 bpm*mmHg BP Response: Patient exhibited a hypertensive response with stress Termination Reason: Completion of Protocol Cardiac Symptoms: Chest Pressure Total Time: 0 min : 8 sec Rest Villagomez BP: 72 mmHg Peak Villagomez BP: 69 mmHg Total Dose: 0.4 mg Resting ECG Sinus tachycardia. Stress ECG No ST changes. Patient had more symptoms after the test including sweating, nausea and she was given Aminophylline 100 mg IV x1 for reversal. Arrhythmias None. Report Signatures Amended by Serafin Burns DO on 12/01/2020 11:13
--- NOTE | 2020-12-01 11:28 | WPDCARIOSTRE ---
Nuclear Stress Test INDICATIONS Indications: Chest pain PROCEDURE Procedure Performed: Myocardial Perf Spect-Multi Procedure: Patient underwent a lexiscan stress test and immediately was injected with 32.8 mCi of cardiolyte. Multiple tomographic images were obtained. These were of good quality. There is evidence of moderate size, moderate severity anterior and apical perfusion defects during stress imaging. A separate resting images were obtained after patient was injected with 10.6 mCi of cardiolyte. Multiple tomographic images were obtained. These were of good quality. There is no evidence of perfusion defects during rest imaging. CONCLUSION Conclusion: 1. Abnormal myocardial perfusion imaging demonstrating moderate size, moderate severity anterior perfusion defect during stress imaging consistent with reversible ischemia. 2. Left ventriculogram demonstrates normal measured ejection fraction at 73% with no wall motion abnormalities. 3. TID score is normal at 0.81.
== END 2020-12-01 07:32 | disposition home or self-care (01) ==
PROVIDERS: PCP Internal Medicine; Visit Provider Internal Medicine Cardiovascular Disease
DX: R07.9 Chest pain, unspecified (principal); R06.02 Shortness of breath; I25.10 Atherosclerotic heart disease of native coronary artery without angina pectoris; R93.1 Abnormal findings on diagnostic imaging of heart and coronary circulation; R94.31 Abnormal electrocardiogram [ECG] [EKG]
CPT/HCPCS: 78452; 93017; A9502; J0280; J2785

== ENCOUNTER 2020-12-15 08:14 | Outpatient (CLI) | payer OTHER, SELFPAY ==
[2020-12-15 08:37] LABS: Basophils Absolute Auto 0.06 K/mm3 (0.00-0.10); Basophils Percent Auto 0.8 % (0.0-1.0); Eosinophils Absolute Auto 0.17 K/mm3 (0.02-0.50); Eosinophils Percent Auto 2.2 % (1.0-6.0); Hematocrit 46.8 % (35.0-49.0); Hemoglobin 14.6 g/dL (12.0-15.0); Immature Granulocyte Absolute 0.03 K/mm3 (0.00-0.00); Immature Granulocyte Percent A 0.4 % (0.0-0.0); Lymphocytes Percent Auto 24.9 % (18.0-42.0); Mean Corpuscular HGB Conc 31.2 g/dL (32.0-36.0); Mean Corpuscular Hemoglobin 26.4 pg (27.0-31.0); Mean Corpuscular Volume 84.6 fL (78.0-102.0); Mean Platelet Volume 10.2 fl (9.2-11.8); Monocytes Absolute Auto 0.41 K/mm3 (0.10-0.90); Monocytes Percent Auto 5.4 % (2.0-11.0); Neutrophils Absolute Auto 5.1 K/mm3 (1.7-7.2); Neutrophils Percent Auto 66.3 % (50.0-70.0); Platelet Count Result 349 K/mm3 (150-420); Red Blood Count 5.53 M/mm3 (4.20-5.40); Red Cell Distribution Width 14.6 % (11.6-14.4); White Blood Count 7.6 K/mm3 (4.8-10.8)
[2020-12-15 08:50] LABS: Prothrombin Time 10.7 Seconds (9.50-12.10)
[2020-12-15 09:33] LABS: Anion Gap 10 mmol/L (8-16); Blood Urea Nitrogen 8 mg/dL (7-18); Calcium 9.1 mg/dL (8.5-10.1); Carbon Dioxide 29 mmol/L (21-32); Chloride 101 mmol/L (98-108); Estimated Glomerular Filt Rate > 60; Glucose 218 mg/dL (70-99); Magnesium 1.9 mg/dL (1.8-2.4); Osmolality Calculated 295 mOsm/kg (285-295); Potassium 4.2 mmol/L (3.5-5.1); Sodium 140 mmol/L (136-145)
[2020-12-15 14:01] LABS: Hemoglobin A1C 7.8 % (<5.7)
== END 2020-12-15 08:15 | disposition home or self-care (01) ==
PROVIDERS: PCP Internal Medicine; Visit Provider Specialist
DX: I25.10 Atherosclerotic heart disease of native coronary artery without angina pectoris (principal); I10 Essential (primary) hypertension; G47.33 Obstructive sleep apnea (adult) (pediatric); R94.39 Abnormal result of other cardiovascular function study; R06.02 Shortness of breath; R73.01 Impaired fasting glucose
CPT/HCPCS: 36415; 80048; 83036; 83735; 85025; 85610

== ENCOUNTER 2021-03-03 10:39 | Emergency (ER) | payer OTHER, SELFPAY ==
[2021-03-03] VITALS (9 sets, daily range): BP systolic 125–155; BP diastolic 64–116; PULSE 75–111; RESP 10–22; TEMP 36.6; O2SAT 97–100
--- NOTE | ~2021-03-03 | CT_ITS ---
EXAMINATION: CTA chest PE abdomen pel DATE: 03/03/2021 13:07 INDICATION: Chest pain. Tachycardia. TECHNIQUE: Computed tomography angiography (CTA) of the chest was performed with 100 mL Omnipaque-350 intravenous contrast timed to evaluate the pulmonary arteries. Coronal maximum intensity projection 3D-reconstructions were created by the technologist. Automated exposure control and iterative reconst ruction technique were employed. Exam dose: 2298.04 mGy-cm total exam DLP. COMPARISON: 03/03/2021 2 view chest 06/30/2020 CT pulmonary scan FINDINGS: There is diagnostic contrast enhancement of the pulmonary arteries and no evidence of pulmo nary embolism. Cardiomegaly. There is trace pericardial fluid. No thoracic aortic aneurysm or dissection. No hilar or mediastinal mass lesion or lymphadenopathy. Indeterminate 3.5 mm nodule in the right central lower lung zone (series 6 image 59). Occasional calc ified pulmonary granulomas. No pulmonary infiltrate or consolidation. No pleural effusion or pneumothorax. Status post cholecystectomy. Included skeletal structures are unremarkable. IMPRESSION: No evidence of pulmonary embolism Cardiomegaly Trace pericardial fluid Indeterminate 3.5 mm nodule in the central right lower lung; old pulmonary granulomatous disease Status post cholecystectomy Reviewed, dictated and finalized at [facility]. Reviewed, dictated and finalized at location [facility]. IMPRESSION: No evidence of pulmonary embolism Cardiomegaly Trace pericardial fluid Indeterminate 3.5 mm nodule in the central right lower lung; old pulmonary gran ulomatous disease Status post cholecystectomy
--- NOTE | ~2021-03-03 | XR_ITS ---
XR chest 2V DATE: 03/03/2021 11:28 INDICATION: Left chest pain TECHNIQUE: PA and lateral views COMPARISON: June 30, 2020 CT pulmonary scan 01/15/2020 portable AP chest FINDINGS: There is cardiomegaly. There is pulmonary vascular redistribution which may indicate pulmon neal venous hypertension. No pulmonary infiltrate or consolidation, pleural effusion or pulmonary vascular congestion or pneumo thorax is detected. IMPRESSION: Cardiomegaly, pulmonary vascular redistribution, suggesting mild congestive changes Reviewed, dictated and finalized at location [facility]. IMPRESSION: Cardiomegaly, pulmonary vascular redistribution, suggesting mild co ngestive changes
--- NOTE | 2021-03-03 10:43 | ED.NAVMDI ---
HPI - Nausea/Vomiting/Diarrhea General Chief complaint: Nausea/Vomiting/Diarrhea Stated complaint: light headed/vomiting/ Stent put in Aug Time Seen by Provider: 03/03/21 10:52 Source: patient Mode of arrival: ambulatory Limitations: no limitations History of Present Illness HPI Narrative: 50-year-old woman with a history of coronary artery disease, type 2 diabetes and obesity comes in here today complaining of left-sided lower chest pain that is sharp in nature and been present for the last hour. Patient states that for the last day or so she has been feeling dizzy when she lays backwards into her recliner (where she sleeps) and had vomiting. The more recent episode at a small amount of blood in it. She has had no diarrhea, cough, cold symptoms, shortness of breath, sore throat, fever, chills or sick contacts. Patient had a stent at [facility] 12/18/20 after a positive Lexiscan stress test in November 2020. Patient states she has not been taking her medications lately because they make her feel ill and nauseated. MD elicited complaint: nausea, vomiting, abdominal pain and other (chest pain) Onset (ago): hour(s) (overnight) Description of vomiting: food contents and blood-streaked Associated nausea: Yes Associated abdominal pain: No Location of pain: LUQ Pain consistency: constant Severity: moderate Quality: sharp and other (and chest tightness) Exacerbating factors: eating and movement Relieving factors: none Associated symptoms: chest pain and nausea/vomiting Related Data Home Medications Medication Instructions Recorded Confirmed No Home Medications 03/03/21 03/03/21 Allergies Allergy/AdvReac Type Severity Reaction Status Date / Time No Known Allergies Allergy Verified 11/02/19 10:55 Review of Systems Review of Systems: All systems reviewed & are unremarkable except as noted in HPI and below Constitutional: Constitutional: Denies chills, Denies fever(s) and Reports weakness Eyes: Eyes: Denies change in vision and Denies photophobia ENT: Denies nasal congestion and Denies sore throat Cardiovascular: Cardiovascular: Reports chest pain and Reports radiating jaw, neck or arm pain (neck) Respiratory: Respiratory: Denies cough, Denies dyspnea and Denies wheezing Gastrointestinal: Gastrointestinal: Reports as per HPI, Denies diarrhea, Reports nausea and Reports vomiting Genitourinary: Genitourinary: Denies nocturia and Denies dysuria Integumentary/Breasts: Skin/Breast: Denies pruritus, Denies erythema and Denies rash Neurologic: Reports vertigo, Denies dizziness, Denies syncope, Denies focal weakness and Denies numbness Hematologic/Lymphatic: Hematologic/Lymphatic: Denies easy bleeding and Denies easy bruising Allergic/Immunologic: Allergic/Immunologic: Denies lip swelling and Denies throat swelling PMFSH Past Medical History Medical History (Updated 03/03/21 @ 15:40 by Reid Canales MD) Anxiety CAD (coronary artery disease) Depression DVT (deep venous thrombosis) Hyperlipidemia KIERA (obstructive sleep apnea) Super obesity Surgical History Surgical History History of appendectomy History of hysterectomy Hx of cholecystectomy Hx of tubal ligation Stented coronary artery Family History Family History Father No problems noted. Social History Social History Years smoked: 10 Smoking status: Former smoker Tobacco type: cigarettes Alcohol intake: never Substance use: never Gender identity (if verbalized by the patient): Female Sexual Orientation (if Verbalized by the Patient): Straight or Heterosexual Spiritual care concerns: No Exam Const: General: alert Nutritional Appearance: obese Orientation/consciousness: patient oriented x3 Other: Moderate acute distress. HENMT: Head: normal to inspection Mouth: Y
--- NOTE | 2021-03-03 10:45 | ECG_ITS ---
Measurements Intervals [place] Rate: 105 P: 67 MD: 155 QRS: 59 QRSD: 82 T: 46 QT: 307 QTc: 407 Interpretive Statements SINUS TACHYCARDIA DELAYED PRECORDIAL R/S TRANSITION LOW QRS VOLTAGE IN PRECORDIAL LEADS BASELINE ARTIFACT- I, II, III, AVR, AVL, AVF BORDERLINE ECG Electronically Signed On 03-03-2021 11:27:38 CDT by Serafin Burns D.O.
[2021-03-03 10:51] LABS: Glucose Point of Care 131 mg/dl (65-105)
[2021-03-03] MEDS: ASPIRIN 81 MG CHEWABLE TABLET 324 MG PO (11:00)
[2021-03-03] MEDS: ONDANSETRON INJ 4 MG/2 ML VIAL IV PUSH (11:01)
[2021-03-03] MEDS: NITROGLYCERIN SL 0.4 MG TABLET (11:03)
[2021-03-03 11:06] LABS: Basophils Absolute Auto 0.04 K/mm3 (0.00-0.10); Basophils Percent Auto 0.4 % (0.0-1.0); Eosinophils Absolute Auto 0.08 K/mm3 (0.02-0.50); Eosinophils Percent Auto 0.8 % (1.0-6.0); Hematocrit 44.4 % (35.0-49.0); Hemoglobin 14.3 g/dL (12.0-15.0); Immature Granulocyte Absolute 0.04 K/mm3 (0.00-0.00); Immature Granulocyte Percent A 0.4 % (0.0-0.0); Lymphocytes Absolute Auto 1.44 K/mm3 (1.10-4.50); Lymphocytes Percent Auto 14.8 % (18.0-42.0); Mean Corpuscular HGB Conc 32.2 g/dL (32.0-36.0); Mean Corpuscular Hemoglobin 27.3 pg (27.0-31.0); Mean Corpuscular Volume 84.9 fL (78.0-102.0); Mean Platelet Volume 10.4 fl (9.2-11.8); Monocytes Absolute Auto 0.44 K/mm3 (0.10-0.90); Monocytes Percent Auto 4.5 % (2.0-11.0); Neutrophils Absolute Auto 7.7 K/mm3 (1.7-7.2); Neutrophils Percent Auto 79.1 % (50.0-70.0); Platelet Count Result 307 K/mm3 (150-420); Red Blood Count 5.23 M/mm3 (4.20-5.40); Red Cell Distribution Width 13.8 % (11.6-14.4); White Blood Count 9.7 K/mm3 (4.8-10.8)
[2021-03-03 11:21] LABS: Partial Thromboplastin Time 26.8 SEC (23.90-30.70); Prothrombin Time 10.9 Seconds (9.50-12.10)
[2021-03-03 11:28] LABS: Alanine Aminotransferase 25 U/L (14-59); Albumin Level 3.3 g/dL (3.4-5.0); Alkaline Phosphatase 139 U/L (46-116); Anion Gap 8 mmol/L (8-16); Aspartate Amino Transferase < 10 U/L (15-37); Bilirubin,Total 0.4 mg/dL (0.00-1.00); Blood Urea Nitrogen 9 mg/dL (7-18); Carbon Dioxide 30 mmol/L (21-32); Chloride 101 mmol/L (98-108); Estimated CRCL calculation 107 ml/min; Estimated Glomerular Filt Rate > 60; Glucose 173 mg/dL (70-99); Lipase 50 U/L (73-393); NT Pro B Type Natriuretic Pept 108 pg/mL (0-125); Osmolality Calculated 290 mOsm/kg (285-295); Potassium 3.7 mmol/L (3.5-5.1); Sodium 139 mmol/L (136-145); Total Protein 6.9 g/dL (6.4-8.2)
[2021-03-03 11:30] LABS: Troponin I 19.5 ng/L (0.00-60.4)
[2021-03-03 11:32] LABS: Lactic Acid Reflex 1.6 mmol/L (0.4-2.0)
[2021-03-03 12:33] LABS: SARS-CoV-2 RNA PCR Negative (Negative)
[2021-03-03 12:45] LABS: Add Urine Microscopic? YES; Appearance Urine Cloudy (Clear); Bilirubin Urine Negative (Negative); Blood Urine Negative (Negative); Color Urine Yellow (Yellow); Glucose Urine UA Negative (Negative); Ketones Urine Negative (Negative); Leukocyte Esterase Ur 1+ LEU/UL (Negative); Nitrate Urine Positive (Negative); Protein Urine Trace (Negative); Specific Grav Ur >= 1.030 (1.010-1.020); Urobilinogen Urine 0.2 mg/dL (0.2-1.0)
[2021-03-03 12:56] LABS: Bacteria Urine 4+ /hpf; Squamous Epithelial Cell Urine Moderate /hpf (Few); WBC Urine 51-75 /hpf (0-3)
[2021-03-03] MEDS: NITROGLYCERIN OINTMENT 1 INCH DOSE TRANSDERM (13:29)
[2021-03-03] MEDS: MORPHINE SULFATE (*CRX) 2 MG/ML INJ IV PUSH (13:30)
[2021-03-03 14:18] LABS: Troponin I 20.5 ng/L (0.00-60.4)
--- NOTE | 2021-03-03 14:33 | PC.NURSE ---
dr. almanzar paged for consult at this time
--- NOTE | 2021-03-03 14:53 | PC.NURSE ---
Dr. Kirk returned call to [facility] at this time
--- NOTE | 2021-03-03 15:06 | PC.NURSE ---
[facility] contacted [facility] ED RN for transfer information at Dr. Kirk request. Information provided. Awaiting call back
--- NOTE | 2021-03-03 15:25 | PC.NURSE ---
HOSPITALIST AT [facility], DR. RUBALCAVA, CONTACTED ERP AT 1521 ACCEPTING THE PATIENT FOR TRANSFER. AWAITING CALL BACK FOR ROOM NUMBER
[2021-03-03] MEDS: ENOXAPARIN 100 MG/ML SYRINGE 150 MG SUB-Q (15:56)
[2021-03-03] MEDS: PROMETHAZINE HCL 25 MG/ML AMPUL IM (16:32)
--- NOTE | 2021-03-03 16:39 | PC.NURSE ---
TELEPHONE REPORT PROVIDED TO KELVIN KULKARNI. PT TO BE TRANSFERRED TO [facility] ROOM 626 BY AMBULANCE
--- NOTE | 2021-03-03 16:44 | PC.NURSE ---
[facility] CONTACTED FOR ALS TRANSFER, DISPATCH STATES THERE ARE NOT ALS TRANSFER TRUCKS AVAILABLE TODAY. [facility] CONTACTED FOR TRANSFER. AWAITING THEIR ARRIVAL.
--- NOTE | 2021-03-03 17:00 | PC.NURSE ---
PATIENTS VITAL SIGNS MONITORED Q15 MIN SINCE 1045. CARDIAC MONITORING SINCE 1045.
--- NOTE | 2021-03-03 17:07 | PC.NURSE ---
[facility] ARRIVAL FOR TRANSFER TO [facility], REPORT PROVIDED.
[2021-03-03 17:19] LABS: Troponin I 18.5 ng/L (0.00-60.4)
== END 2021-03-03 17:15 | disposition short-term general hospital (02) ==
PROVIDERS: Emergency Provider Emergency Medicine; PCP Internal Medicine
DX: R07.9 Chest pain, unspecified (principal); N30.00 Acute cystitis without hematuria; Z20.822 Contact with and (suspected) exposure to COVID-19
CPT/HCPCS: 36415; 71046; 71275; 74177; 80053; 81001; 82948; 83605; 83690; 83880; 84484; 85025; 85610; 85730; 87040; 87077; 87086; 87088; 87186; 93005; 96365; 96372; 96375; 99285; A9270; C9803; J0696; J1650; J2270; J2405; J2550; Q9967; U0003; U0005

== ENCOUNTER 2021-12-21 09:44 | Emergency (ER) | payer OTHER, SELFPAY ==
--- NOTE | ~2021-12-21 | XR_ITS ---
EXAMINATION: XR chest 1V portable DATE: 12/21/2021 10:24 INDICATION: Chest pain. Dizziness. TECHNIQUE: A single frontal view of the chest was obtained. COMPARISON: Chest 2 views 03/03/2021, chest CT 03/03/2021 FINDINGS: There is no pneumonia, pleural effusion, or pneumothorax. Cardiomegaly is noted. IMPRESSION: 1. Cardiomegaly. Reviewed, dictated and finalized at location A. IMPRESSION: 1. Cardiomegaly.
[2021-12-21 10:00] VITALS: BP 116/77; PULSE 91; RESP 16; TEMP 36.6; O2SAT 99
--- NOTE | 2021-12-21 10:05 | ECG_ITS ---
Measurements Intervals [place] Rate: 85 P: 88 OR: 205 QRS: 6 QRSD: 90 T: 13 QT: 354 QTc: 423 Interpretive Statements SINUS RHYTHM WITH OCCASIONAL SUPRAVENTRICULAR PREMATURE COMPLEXES LOW QRS VOLTAGE IN PRECORDIAL LEADS BORDERLINE ECG COMPARED TO ECG 03/03/2021 10:52:13 HEART RATE HAS DECREASED Electronically Signed On 12-21-2021 14:31:00 CDT by Vidal Concepcion M.D.
[2021-12-21 10:30] LABS: Basophils Absolute Auto 0.03 K/mm3 (0.00-0.10); Basophils Percent Auto 0.5 % (0.0-1.0); Eosinophils Absolute Auto 0.04 K/mm3 (0.02-0.50); Eosinophils Percent Auto 0.6 % (1.0-6.0); Hematocrit 40.4 % (35.0-49.0); Hemoglobin 13.2 g/dL (12.0-15.0); Immature Granulocyte Absolute 0.02 K/mm3 (0.00-0.00); Immature Granulocyte Percent A 0.3 % (0.0-0.0); Lymphocytes Absolute Auto 1.09 K/mm3 (1.10-4.50); Lymphocytes Percent Auto 16.5 % (18.0-42.0); Mean Corpuscular HGB Conc 32.7 g/dL (32.0-36.0); Mean Corpuscular Hemoglobin 28.6 pg (27.0-31.0); Mean Corpuscular Volume 87.4 fL (78.0-102.0); Monocytes Absolute Auto 0.25 K/mm3 (0.10-0.90); Monocytes Percent Auto 3.8 % (2.0-11.0); Neutrophils Absolute Auto 5.2 K/mm3 (1.7-7.2); Neutrophils Percent Auto 78.3 % (50.0-70.0); Platelet Count Result 239 K/mm3 (150-420); Red Blood Count 4.62 M/mm3 (4.20-5.40); Red Cell Distribution Width 14.3 % (11.6-14.4); White Blood Count 6.6 K/mm3 (4.8-10.8)
[2021-12-21 10:45] LABS: Prothrombin Time 11.2 Seconds (9.50-12.10)
[2021-12-21 10:58] LABS: Anion Gap 6 mmol/L (8-16); Blood Urea Nitrogen 10 mg/dL (7-18); Calcium 8.9 mg/dL (8.5-10.1); Carbon Dioxide 30 mmol/L (21-32); Chloride 105 mmol/L (98-108); Estimated Glomerular Filt Rate > 60; Glucose 108 mg/dL (70-99); Osmolality Calculated 292 mOsm/kg (285-295); Potassium 3.8 mmol/L (3.5-5.1); Sodium 141 mmol/L (136-145)
[2021-12-21 11:00] VITALS: O2SAT 94
[2021-12-21 11:02] LABS: NT Pro B Type Natriuretic Pept 69 pg/mL (0-125); Troponin I 22.9 ng/L (0.00-60.4)
[2021-12-21] MEDS: MECLIZINE HCL 25 MG TABLET PO (11:02)
--- NOTE | 2021-12-21 11:02 | ED.GENADULT ---
HPI - General Adult General Chief complaint: Chest Pain Stated complaint: ambulance History of Present Illness HPI narrative: This is a 51-year-old female significant cardiac history presenting to ED with a chief complaint chest pain and dizziness. Patient states she started chest heaviness last night while she was reading a book. She has had a septum multiple times in the past negative workups. The pain is not radiating at 8/10 intensity and comes and goes. There are no alleviating or exacerbating symptoms. The patient did have 1 episode of vomiting that was when she tried to swallow the aspirin she was given by EMS. She does not feel nauseous or vomited up side that. There is no exertional component. Did not make her diaphoretic. Patient also states today she has the experience of dizziness. Based on her description it sounds more like disequilibrium or loss of balance as opposed to presyncope or vertigo. It is episodic and triggered by head movements. She has been complaining of left ear fullness for the last week. The patient denies diplopia, dysphagia dysarthria, dystaxia. she denies numbness tingling in extremity. patient is not taking any prescribed medications in approximately 1 year. She describes symptoms for him and typically refuses to leave the house. Patient admits to multiple personal stressors in her life this including her sister going through open heart surgery today. Related Data Home Medications Medication Instructions Recorded Confirmed atorvastatin 80 mg tablet 80 mg PO DAILY 12/21/21 12/21/21 bupropion HCl 300 mg 24 hr tablet, 300 mg PO QAM 12/21/21 12/21/21 extended release calcitriol 0.5 mcg capsule 0.5 mcg PO DAILY 12/21/21 12/21/21 clopidogrel 75 mg tablet 75 mg PO DAILY 12/21/21 12/21/21 ezetimibe 10 mg tablet 10 mg PO DAILY 12/21/21 12/21/21 glimepiride 4 mg tablet 8 mg PO DAILY 12/21/21 12/21/21 hydroxyzine pamoate 50 mg capsule 50 mg PO BID 12/21/21 12/21/21 metoprolol succinate 25 mg 25 mg PO DAILY 12/21/21 12/21/21 tablet,extended release 24 hr venlafaxine 150 mg tablet,extended 150 mg PO BID 12/21/21 12/21/21 release 24 hr vitamin B complex (B 1 tablet PO DAILY 12/21/21 12/21/21 Complex-Vitamin B12 tablet) Allergies Allergy/AdvReac Type Severity Reaction Status Date / Time No Known Allergies Allergy Verified 12/21/21 10:08 Review of Systems Constitutional: Constitutional: Denies fever(s) Eyes: Eyes: Denies change in vision ENT: Denies dysphagia and Reports dizziness Cardiovascular: Cardiovascular: Denies rapid heart rate Respiratory: Respiratory: Denies chest congestion Gastrointestinal: Gastrointestinal: Denies abdominal pain Genitourinary: Genitourinary: Denies hematuria Musculoskeletal: Musculoskeletal: Denies back pain Integumentary/Breasts: Skin/Breast: Denies breast pain Neurologic: Denies confusion Psychiatric: Psychiatric: Reports anxiety [facility] Past Medical History Medical History (Updated 12/21/21 @ 14:24 by Grover Lopes MD) Anxiety CAD (coronary artery disease) Depression DVT (deep venous thrombosis) Hyperlipidemia KIERA (obstructive sleep apnea) Super obesity Surgical History Surgical History History of appendectomy History of hysterectomy Hx of cholecystectomy Hx of tubal ligation Stented coronary artery Family History Family History Father No problems noted. Social History Social History Years smoked: 10 Smoking status: Former smoker Tobacco type: cigarettes Alcohol intake: never Substance use: never Gender identity (if verbalized by the patient): Female Sexual Orientation (if Verbalized by the Patient): Straight or Heterosexual Spiritual care concerns: No Exam Const: Other: patient appears uncomfortable HENMT: Head: n
[2021-12-21] MEDS: LORazepam (*CRX) 0.5 MG TABLET 1 MG PO (12:25)
[2021-12-21 13:57] LABS: Troponin I 25.9 ng/L (0.00-60.4)
[2021-12-21 14:45] VITALS: BP 147/68; PULSE 68; RESP 17; TEMP 36.4; O2SAT 100
== END 2021-12-21 15:00 | disposition home or self-care (01) ==
PROVIDERS: Emergency Provider Emergency Medicine; PCP Internal Medicine
DX: R07.9 Chest pain, unspecified (principal); R42 Dizziness and giddiness
CPT/HCPCS: 36415; 71045; 80048; 83880; 84484; 85025; 85380; 85610; 85730; 93005; 99284; A9270

== ENCOUNTER 2021-12-30 19:54 | Emergency (ER) | payer OTHER, SELFPAY ==
--- NOTE | ~2021-12-30 | CT_ITS ---
EXAMINATION: CT abdomen pelvis w con DATE: 12/30/2021 22:58 INDICATION: LT abdominal pain n/v today TECHNIQUE: Computed tomography (CT) of the abdomen and pelvis was performed with 100 mL Omnipaque-350 intravenous contrast. Automated exposure control and iterative reconstruction technique were employe d. The dose-length product was 1571.22 mGy-cm. COMPARISON: [facility]PA 06/30/2020 CT abdomen pelvis 01/20/2020. FINDINGS: Lower thorax: Cardiomegaly. Coronary calcifications and stents. Stable pulmonary nodules/granulomas. Dilated pulmonary arteries as can be seen with pulmonary arterial hypertension. Liver: Hepatomegaly. Right posterior lobe cyst Biliary/Gallbladder: Gallbladder is absent. No bile duct dilation. Pancreas: Fatty infiltrated. No mass or duct dilation. Spleen: Normal. Adrenals:No mass. Kidneys: Multiple bilateral subcentimeter hypodensities, too small to characterize, but statistically most likely represent cysts. GI tract: No small or large bowel dilation. Appendix surgically absent. Submucosal fatty infiltration most pronounced in the right colon and terminal ileum. Colonic submucosal fat can be seen with chron ic IBD, obesity, chemotherapy treatment, and celiac disease. Mesentery/Peritoneum: No ascites, mass, or free air. Retroperitoneum: No mass. Atherosclerotic abdominal aortic and/or arterial calcifications. Pelvis: Uterus is surgically absent.. Soft Tissues: Soft tissues and body wall unremarkable. Bones: No acute osseous finding. IMPRESSION: No acute abdominopelvic process detected. Reviewed, dictated and finalized at location [facility].
--- NOTE | 2021-12-30 20:05 | ED.ABDPAIN ---
HPI - Abdominal Pain General Chief Complaint: Nausea/Vomiting/Diarrhea Stated Complaint: ambulance Time Seen by Provider: 12/30/21 20:05 Source: patient and EMS History of Present Illness HPI narrative: 51-year-old female with a history of obesity, dyslipidemia, diabetes mellitus, anxiety/depression, KIERA, coronary artery disease status post stent was recently seen in the ER on 12/21/2021 for chest pain and dizziness and was diagnosed to have post vertigo. The patient presents to the ER today with -- left flank pain since yesterday -- nausea with multiple episodes of vomiting. Currently the patient is not taking any medication other than scopolamine patch for dizziness. MD elicited complaint: flank pain Pertinent past history: myocardial infarction Onset (ago): day(s) ( her symptoms started yesterday) Pain Consistency: intermittent Location: L flank Severity: moderate Quality: cramping Radiation: none Migration to: no migration Exacerbating factors: nothing Relieving factors: nothing Associated symptoms: nausea and vomiting Related Data Home Medications Medication Instructions Recorded Confirmed atorvastatin 80 mg tablet 80 mg PO DAILY 12/21/21 12/30/21 bupropion HCl 300 mg 24 hr tablet, 300 mg PO QAM 12/21/21 12/30/21 extended release calcitriol 0.5 mcg capsule 0.5 mcg PO DAILY 12/21/21 12/30/21 clopidogrel 75 mg tablet 75 mg PO DAILY 12/21/21 12/30/21 ezetimibe 10 mg tablet 10 mg PO DAILY 12/21/21 12/30/21 glimepiride 4 mg tablet 8 mg PO DAILY 12/21/21 12/30/21 hydroxyzine pamoate 50 mg capsule 50 mg PO BID 12/21/21 12/30/21 metoprolol succinate 25 mg 25 mg PO DAILY 12/21/21 12/30/21 tablet,extended release 24 hr venlafaxine 150 mg tablet,extended 150 mg PO BID 12/21/21 12/30/21 release 24 hr vitamin B complex (B 1 tablet PO DAILY 12/21/21 12/30/21 Complex-Vitamin B12 tablet) Allergies Allergy/AdvReac Type Severity Reaction Status Date / Time No Known Allergies Allergy Verified 12/30/21 20:09 Review of Systems Review of Systems: All systems reviewed & are unremarkable except as noted in HPI and below Constitutional: Constitutional: Reports as per HPI and Reports no additional constitutional complaints Eyes: Eyes: Reports as per HPI and Reports no additional eye complaints ENT: Reports system reviewed and no additional complaints, except as documented and Reports as per HPI Cardiovascular: Cardiovascular: Reports as per HPI and Reports no additional cardiovascular complaints Respiratory: Respiratory: Reports as per HPI and Reports no additional respiratory complaints Gastrointestinal: Gastrointestinal: Reports as per HPI, Reports no additional gastrointestinal complaints, Reports abdominal pain, Reports nausea and Reports vomiting Genitourinary: Genitourinary: Reports no additional female genitourinary complaints Musculoskeletal: Musculoskeletal: Reports no additional musculoskeletal complaints and Reports as per HPI Integumentary/Breasts: Skin/Breast: Reports system reviewed and no additional complaints, except as docu and Reports as per HPI Neurologic: Reports system reviewed and no additional complaints, except as documented and Reports as per HPI Psychiatric: Psychiatric: Reports no additional psychiatric complaints and Reports as per HPI Endocrine: Endocrine: Reports no additional endocrine complaints and Reports as per HPI Hematologic/Lymphatic: Hematologic/Lymphatic: Reports no additional hematologic/lymphatic complaints and Reports as per HPI Allergic/Immunologic: Allergic/Immunologic: Reports no additional allergic/immunologic complaints and Reports as per HPI REPLACED BY [facility] Past Medical History Medical History (Updated 12/30/21 @ 23:47 by Keshawn Ospina MD) Anxiety CAD (coronary artery disease) Depression DVT (deep venous thrombosis) Hyperlipidemia KIERA (obstructive sleep apnea) Super obesity Surgical History Surgical History (Reviewed 12/30/21 @ 20:32 by Keshawn Ospina,
[2021-12-30 20:09] VITALS: BP 146/65; PULSE 95; RESP 19; TEMP 36.2; O2SAT 96
[2021-12-30 20:40] LABS: Basophils Absolute Auto 0.02 K/mm3 (0.00-0.10); Basophils Percent Auto 0.3 % (0.0-1.0); Eosinophils Absolute Auto 0.09 K/mm3 (0.02-0.50); Eosinophils Percent Auto 1.2 % (1.0-6.0); Hematocrit 41.2 % (35.0-49.0); Hemoglobin 13.3 g/dL (12.0-15.0); Immature Granulocyte Absolute 0.03 K/mm3 (0.00-0.00); Immature Granulocyte Percent A 0.4 % (0.0-0.0); Lymphocytes Absolute Auto 1.53 K/mm3 (1.10-4.50); Lymphocytes Percent Auto 20.1 % (18.0-42.0); Mean Corpuscular HGB Conc 32.3 g/dL (32.0-36.0); Mean Corpuscular Hemoglobin 28.1 pg (27.0-31.0); Mean Corpuscular Volume 87.1 fL (78.0-102.0); Mean Platelet Volume 11.3 fl (9.2-11.8); Monocytes Absolute Auto 0.36 K/mm3 (0.10-0.90); Monocytes Percent Auto 4.7 % (2.0-11.0); Neutrophils Absolute Auto 5.6 K/mm3 (1.7-7.2); Neutrophils Percent Auto 73.3 % (50.0-70.0); Platelet Count Result 239 K/mm3 (150-420); Red Blood Count 4.73 M/mm3 (4.20-5.40); Red Cell Distribution Width 14.5 % (11.6-14.4); White Blood Count 7.6 K/mm3 (4.8-10.8)
[2021-12-30 20:58] LABS: Alanine Aminotransferase 20 U/L (14-59); Alkaline Phosphatase 121 U/L (46-116); Anion Gap 7 mmol/L (8-16); Aspartate Amino Transferase 12 U/L (15-37); Bilirubin,Total 0.7 mg/dL (0.00-1.00); Blood Urea Nitrogen 8 mg/dL (7-18); Calcium 8.8 mg/dL (8.5-10.1); Carbon Dioxide 30 mmol/L (21-32); Chloride 102 mmol/L (98-108); Estimated CRCL calculation 98 ml/min; Estimated Glomerular Filt Rate > 60; Glucose 130 mg/dL (70-99); Lipase 29 U/L (73-393); Osmolality Calculated 288 mOsm/kg (285-295); Potassium 3.6 mmol/L (3.5-5.1); Sodium 139 mmol/L (136-145); Total Protein 6.1 g/dL (6.4-8.2); Troponin I 26.6 ng/L (0.00-60.4)
[2021-12-30 21:01] LABS: Lactic Acid Reflex 0.7 mmol/L (0.4-2.0)
[2021-12-30] MEDS: ONDANSETRON INJ 4 MG/2 ML VIAL IV PUSH (21:17)
[2021-12-30] MEDS: HYDROmorphone HCL INJ (*CRX) 2 MG/ML VIAL 0.5 MG IV PUSH (21:17)
[2021-12-30] MEDS: LACTATED RINGERS 1,000 ML 999 ML IV CONT (21:22)
[2021-12-30 21:30] VITALS: BP 133/86; PULSE 77; RESP 18; O2SAT 100
[2021-12-30 22:00] VITALS: BP 126/78; PULSE 79; RESP 16; O2SAT 93
[2021-12-30 22:30] VITALS: BP 111/57; PULSE 80; RESP 16; O2SAT 96
[2021-12-30 22:31] LABS: Add Urine Microscopic? YES; Appearance Urine Cloudy (Clear); Bilirubin Urine 1+ (Negative); Blood Urine Negative (Negative); Color Urine Yellow (Yellow); Glucose Urine UA Negative (Negative); Ketones Urine Trace (Negative); Leukocyte Esterase Ur 2+ (Negative); Nitrate Urine Negative (Negative); Protein Urine 1+ (Negative); Specific Grav Ur 1.025 (1.010-1.020)
[2021-12-30 22:34] LABS: Bacteria Urine 2+ /hpf; RBC Urine 0-2 /hpf (0-2); Squamous Epithelial Cell Urine Moderate /hpf (Few); WBC Urine 16-20 /hpf (0-3)
[2021-12-30] MEDS: CIPROFLOXACIN 400 MG/D5W 200ML 200 ML 200 MG IVPB (23:10)
[2021-12-31 00:20] VITALS: BP 112/53; PULSE 77; RESP 19; TEMP 36.4; O2SAT 99
== END 2021-12-31 00:34 | disposition home or self-care (01) ==
PROVIDERS: Emergency Provider Internal Medicine Critical Care Medicine; PCP Internal Medicine
DX: R10.9 Unspecified abdominal pain (principal); N39.0 Urinary tract infection, site not specified
CPT/HCPCS: 36415; 74177; 80053; 81001; 83605; 83690; 84484; 85025; 96361; 96365; 96375; 99284; J0744; J1170; J2405; J7120; Q9967

== ENCOUNTER 2022-01-20 12:38 | Outpatient (CLI) | payer OTHER, SELFPAY ==
--- NOTE | ~2022-01-20 | US_ITS ---
EXAMINATION: US carotid duplex BI DATE: 01/20/2022 13:21 INDICATION: Syncope. Dizziness. Carotid atherosclerosis. TECHNIQUE: Grayscale, color Doppler, and pulsed Doppler images of the cervical carotid arteries were obtained. The degree of vessel stenosis is placed in one of the following categories: normal, <50%, 5 0-69%, >=70% but less than near-occlusion, near-occlusion, or total occlusion. Note that percent sten osis relative to normal distal artery lumen diameter is indirectly measured from velocity measurement s as described by Sravan, et al. Radiology 2003; 229:340-346. COMPARISON: None. FINDINGS: RIGHT: The right common carotid artery (CCA) peak systolic velocity (PSV) is 59 cm/s. The right internal car otid artery (ICA) PSV is 65 cm/s. The right ICA end-diastolic velocity (EDV) is 25 cm/s. The right IC A/CCA PSV ratio is 1.1. Grayscale and color Doppler images yield an estimate of <50% diameter reducti on from plaque in the ICA. The external carotid artery (ECA) PSV is 84 cm/s. There is antegrade flow in the right vertebral artery. LEFT: The left CCA PSV is 66 cm/s. The left ICA PSV is 74 cm/s. The left ICA EDV is 22 cm/s. The left ICA/C CA PSV ratio is 1.1. Grayscale and color Doppler images yield an estimate of <50% diameter reduction from plaque in the ICA. The ECA PSV is 75 cm/s. There is antegrade flow in the left vertebral artery. IMPRESSION: 1. <50% stenosis from small amount of plaque in the right internal carotid artery. 2. <50% stenosis from minimal plaque in the left internal carotid artery. Reviewed, dictated and finalized at location A. IMPRESSION: 1. <50% stenosis from small amount of plaque in the right internal carotid rasheed ry. 2. <50% stenosis from minimal plaque in the left internal carotid artery.
== END 2022-01-20 12:39 | disposition home or self-care (01) ==
PROVIDERS: PCP Internal Medicine; Visit Provider Internal Medicine
DX: R42 Dizziness and giddiness (principal); R55 Syncope and collapse
CPT/HCPCS: 93880

== ENCOUNTER 2022-02-26 13:56 | Outpatient (CLI) | payer OTHER, SELFPAY ==
--- NOTE | ~2022-02-26 | CT_ITS ---
EXAMINATION: CT BRAIN W/O DATE: 02/26/2022 14:14 INDICATION: Dizziness for 3 months TECHNIQUE: Computed tomography (CT) of the head was performed without intravenous contrast. The dose- length product was 605.33 mGy-cm. Automated exposure control and iterative reconstruction technique w ere employed. COMPARISON: No prior studies for comparison. FINDINGS: Normal brain parenchymal volume for age. Normal keith-white differentiation. No acute intrac ranial hemorrhage, infarction, mass or mass effect. No ventriculomegaly or midline shift. Midline sagittal images demonstrate a normal corpus callosum, c raniovertebral junction and sella turcica. Basilar cisterns are patent. Paranasal sinuses and mastoids are pneumatized. No depressed skull fractures. IMPRESSION: 1. No acute intracranial abnormality. Reviewed, dictated and finalized at location A.
== END 2022-02-26 13:57 | disposition home or self-care (01) ==
LOC: CHSIMG 13:58
PROVIDERS: PCP Internal Medicine; Visit Provider Internal Medicine
DX: R42 Dizziness and giddiness (principal)
CPT/HCPCS: 70450

== ENCOUNTER 2022-03-30 08:21 | Outpatient (CLI) | payer OTHER, SELFPAY ==
[2022-03-30 09:02] LABS: Hemoglobin A1C 5.6 % (<5.7)
[2022-03-30 09:13] LABS: Alanine Aminotransferase 14 U/L (14-59); Albumin Level 3.1 g/dL (3.4-5.0); Alkaline Phosphatase 173 U/L (46-116); Anion Gap 5 mmol/L (8-16); Aspartate Amino Transferase 10 U/L (15-37); Bilirubin,Total 0.6 mg/dL (0.00-1.00); Blood Urea Nitrogen 11 mg/dL (7-18); Calcium 8.8 mg/dL (8.5-10.1); Carbon Dioxide 32 mmol/L (21-32); Chloride 102 mmol/L (98-108); Cholesterol 207 mg/dL (0-200); Creatine Kinase 31 U/L (26-192); Estimated Glomerular Filt Rate > 60; Glucose 124 mg/dL (70-99); HDL Direct 54 mg/dL (40-60); LDL Cholesterol Calculated 134 mg/dL (<130); Osmolality Calculated 288 mOsm/kg (285-295); Potassium 4.1 mmol/L (3.5-5.1); Sodium 139 mmol/L (136-145); Total Protein 6.5 g/dL (6.4-8.2); Triglycerides 95 mg/dL (0-150)
== END 2022-03-30 08:22 | disposition home or self-care (01) ==
LOC: CHSLAB 08:23
PROVIDERS: PCP Internal Medicine; Visit Provider Internal Medicine
DX: E78.2 Mixed hyperlipidemia (principal); E11.9 Type 2 diabetes mellitus without complications
CPT/HCPCS: 36415; 80053; 80061; 82550; 83036

== ENCOUNTER 2022-07-19 08:30 | Outpatient (CLI) | payer OTHER, SELFPAY ==
[2022-07-19 09:11] LABS: Alanine Aminotransferase 16 U/L (14-59); Albumin Level 3.3 g/dL (3.4-5.0); Alkaline Phosphatase 146 U/L (46-116); Anion Gap 7 mmol/L (8-16); Aspartate Amino Transferase 12 U/L (15-37); Bilirubin,Total 0.4 mg/dL (0.00-1.00); Blood Urea Nitrogen 10 mg/dL (7-18); Calcium 8.9 mg/dL (8.5-10.1); Carbon Dioxide 32 mmol/L (21-32); Chloride 104 mmol/L (98-108); Cholesterol 169 mg/dL (0-200); Creatine Kinase 26 U/L (26-192); Estimated Glomerular Filt Rate > 60; Glucose 142 mg/dL (70-99); HDL Direct 57 mg/dL (40-60); LDL Cholesterol Calculated 88 mg/dL (<130); Osmolality Calculated 297 mOsm/kg (285-295); Sodium 143 mmol/L (136-145); Total Protein 7.1 g/dL (6.4-8.2); Triglycerides 120 mg/dL (0-150)
== END 2022-07-19 08:31 | disposition home or self-care (01) ==
LOC: CHSLAB 08:32
PROVIDERS: PCP Internal Medicine; Visit Provider Internal Medicine
DX: E78.2 Mixed hyperlipidemia (principal)
CPT/HCPCS: 36415; 80053; 80061; 82550

== ENCOUNTER 2022-11-23 12:08 | Emergency (ER) | payer OTHER, SELFPAY ==
[2022-11-23 12:08] VITALS: BP 170/89; PULSE 89; RESP 18; TEMP 36.9; O2SAT 92
[2022-11-23] MEDS: ORPHENADRINE CITRATE 30 MG/ML 2 ML VIAL 60 MG IM (12:40)
[2022-11-23] MEDS: KETOROLAC (*BKC) 60 MG/2 ML VIAL IM (12:40)
--- NOTE | 2022-11-23 12:45 | ED.BACK ---
HPI - Back Pain/Injury General Chief Complaint: Back Pain/Injury Stated Complaint: left sided pain Time Seen by Provider: 11/23/22 12:30 Source: patient Mode of arrival: ambulatory Limitations: no limitations History of Present Illness HPI Narrative: This is a 52-year-old female with some back pain that started yesterday after she was lifting and helping her mother move and felt a twinge in her left lower back with no radiation into her hip or lower extremity with no numbness or tingling, rates her pain about a 7/10 no no dysuria no hematuria no shortness of breath no chest pain no fever chills. MD elicited complaint: back pain Pertinent past history: recent trauma Onset (ago): day(s) Severity: moderate Pain scale (0-10): 7 Quality: sharp and aching Related Data Home Medications Medication Instructions Recorded Confirmed bupropion HCl 300 mg 24 hr tablet, 300 mg PO QAM 12/21/21 11/23/22 extended release hydroxyzine pamoate 50 mg capsule 50 mg PO BID 12/21/21 11/23/22 metoprolol succinate 25 mg 25 mg PO BID 12/21/21 11/23/22 tablet,extended release 24 hr vitamin B complex (B 1 tablet PO DAILY 12/21/21 11/23/22 Complex-Vitamin B12 tablet) lisinopril 5 mg tablet 5 mg PO DAILY 11/23/22 11/23/22 rosuvastatin 40 mg tablet 40 mg PO DAILY 11/23/22 11/23/22 Allergies Allergy/AdvReac Type Severity Reaction Status Date / Time No Known Allergies Allergy Verified 12/30/21 20:09 Review of Systems Review of Systems: All systems reviewed & are unremarkable except as noted in HPI and below PMFSH Past Medical History Medical History (Updated 11/23/22 @ 12:52 by Kyle Yepez MD) Anxiety CAD (coronary artery disease) Depression DVT (deep venous thrombosis) Hyperlipidemia KIERA (obstructive sleep apnea) Super obesity Surgical History Surgical History History of appendectomy History of hysterectomy Hx of cholecystectomy Hx of tubal ligation Stented coronary artery Family History Family History Father No problems noted. Social History Social History Years smoked: 10 Smoking status: Former smoker Tobacco type: cigarettes Alcohol intake: never Substance use: never Living arrangements: alone Gender identity (if verbalized by the patient): Female Sexual Orientation (if Verbalized by the Patient): Straight or Heterosexual Spiritual care concerns: No Exam Const: General: healthy appearing and no acute distress Nutritional Appearance: well nourished Limitations: no limitations Neck: Neck: normal visual inspection and no lymphadenopathy Chest: Chest palpation & inspection: normal inspection of the chest Resp: Effort & Inspection: normal respiratory effort Auscultation: clear to auscultation bilaterally Cardio: Rate: regular rate Rhythm: regular rhythm GI: Auscultation: normal bowel sounds Skin: General skin exam: normal color Rashes: no rashes Wounds: no wounds Neuro: General: patient oriented x3, moves all extremities and no meningeal signs Extrem: Other: L4 left paravertebral tenderness with palpation Psych: Mental Status: mental status grossly normal Affect: normal affect Course Course Emergency Course: patient received a IM dose of 60mg Toradol and 60mg of muscle relaxer IM. Vital Signs Vital signs: Vital Signs Temperature 36.9 C 11/23/22 12:08 Pulse Rate 89 11/23/22 12:08 Respiratory Rate 18 11/23/22 12:08 Blood Pressure 170/89 H 11/23/22 12:08 Pulse Oximetry 92 11/23/22 12:08 Oxygen Delivery Room Air 11/23/22 12:08 Temperature 36.9 C 11/23/22 12:08 Pulse Rate 89 11/23/22 12:08 Respiratory Rate 18 11/23/22 12:08 Blood Pressure 170/89 H 11/23/22 12:08 Pulse Oximetry 92 11/23/22 12:08 Oxygen Delivery Room Air 11/23/22 12:08
[2022-11-23 12:54] VITALS: PULSE 74; RESP 20; TEMP 36.9; O2SAT 97
== END 2022-11-23 13:12 | disposition home or self-care (01) ==
PROVIDERS: Emergency Provider Emergency Medicine; PCP Internal Medicine
DX: S39.012A Strain of muscle, fascia and tendon of lower back, initial encounter (principal); I25.10 Atherosclerotic heart disease of native coronary artery without angina pectoris; E78.5 Hyperlipidemia, unspecified; Z86.718 Personal history of other venous thrombosis and embolism; Z87.891 Personal history of nicotine dependence; X50.9XXA Other and unspecified overexertion or strenuous movements or postures, initial encounter
CPT/HCPCS: 96372; 99284; J1885; J2360

== ENCOUNTER 2023-02-26 09:13 | Outpatient (CLI) | payer OTHER, SELFPAY ==
[2023-02-26 09:36] LABS: Basophils Absolute Auto 0.04 K/mm3 (0.00-0.10); Basophils Percent Auto 0.5 % (0.0-1.0); Eosinophils Absolute Auto 0.26 K/mm3 (0.02-0.50); Eosinophils Percent Auto 3.5 % (1.0-6.0); Hematocrit 45.1 % (35.0-49.0); Hemoglobin 14.2 g/dL (12.0-15.0); Immature Granulocyte Absolute 0.03 K/mm3 (0.00-0.00); Immature Granulocyte Percent A 0.4 % (0.0-0.0); Lymphocytes Absolute Auto 2.22 K/mm3 (1.10-4.50); Lymphocytes Percent Auto 29.7 % (18.0-42.0); Mean Corpuscular HGB Conc 31.5 g/dL (32.0-36.0); Mean Corpuscular Hemoglobin 26.2 pg (27.0-31.0); Mean Corpuscular Volume 83.1 fL (78.0-102.0); Mean Platelet Volume 10.8 fl (9.2-11.8); Monocytes Absolute Auto 0.43 K/mm3 (0.10-0.90); Monocytes Percent Auto 5.8 % (2.0-11.0); Neutrophils Absolute Auto 4.5 K/mm3 (1.7-7.2); Neutrophils Percent Auto 60.1 % (50.0-70.0); Platelet Count Result 276 K/mm3 (150-420); Red Blood Count 5.43 M/mm3 (4.20-5.40); Red Cell Distribution Width 14.2 % (11.6-14.4); White Blood Count 7.5 K/mm3 (4.8-10.8)
[2023-02-26 09:40] LABS: Appearance Urine Slightly Cloudy (Clear); Bilirubin Urine 1+ (Negative); Blood Urine Trace-Intact (Negative); Color Urine Yellow (Yellow); Glucose Urine UA Negative (Negative); Ketones Urine Negative (Negative); Leukocyte Esterase Ur 1+ LEU/UL (Negative); Nitrate Urine Negative (Negative); Protein Urine 1+ (Negative); Specific Grav Ur >= 1.030 (1.010-1.020); Urobilinogen Urine 0.2 mg/dL (0.2-1.0); pH Urine 5.5 (5.0-8.0)
[2023-02-26 09:42] LABS: Add Urine Microscopic? YES; Bacteria Urine 2+ /hpf; Squamous Epithelial Cell Urine Few /hpf (Few)
[2023-02-26 09:48] LABS: Hemoglobin A1C 5.9 % (<5.7)
[2023-02-26 09:49] LABS: Alanine Aminotransferase 20 U/L (14-59); Albumin Level 3.3 g/dL (3.4-5.0); Alkaline Phosphatase 139 U/L (46-116); Anion Gap 7 mmol/L (8-16); Aspartate Amino Transferase < 10 U/L (15-37); Bilirubin,Total 0.5 mg/dL (0.00-1.00); Blood Urea Nitrogen 11 mg/dL (7-18); Calcium 9.5 mg/dL (8.5-10.1); Carbon Dioxide 27 mmol/L (21-32); Chloride 106 mmol/L (98-108); Cholesterol 124 mg/dL (0-200); Creatine Kinase 23 U/L (26-192); Estimated Glomerular Filt Rate 50; Glucose 149 mg/dL (70-99); HDL Direct 50 mg/dL (40-60); LDL Cholesterol Calculated 49 mg/dL (<130); Osmolality Calculated 292 mOsm/kg (285-295); Sodium 140 mmol/L (136-145); Total Protein 6.8 g/dL (6.4-8.2); Triglycerides 124 mg/dL (0-150)
[2023-02-26 10:23] LABS: Ferritin 153 ng/mL (8-252); Iron 66 ug/dL (50-170); Vitamin B12 1941 pg/mL (193-986)
[2023-03-01 12:18] LABS: Vitamin D 25 Hydroxy 7 ng/mL (30-100)
== END 2023-02-26 09:14 | disposition home or self-care (01) ==
LOC: CHSLAB 09:16
PROVIDERS: PCP Internal Medicine; Visit Provider Internal Medicine
DX: N39.0 Urinary tract infection, site not specified (principal); E78.2 Mixed hyperlipidemia; I10 Essential (primary) hypertension; E53.8 Deficiency of other specified B group vitamins; E11.59 Type 2 diabetes mellitus with other circulatory complications; E61.1 Iron deficiency; E55.9 Vitamin D deficiency, unspecified; R82.90 Unspecified abnormal findings in urine
CPT/HCPCS: 36415; 80053; 80061; 81001; 82306; 82550; 82607; 82728; 83036; 83540; 85025; 87086; 87088

== ENCOUNTER 2023-02-26 09:36 | Emergency (ER) | payer OTHER, SELFPAY ==
[2023-02-26 09:36] VITALS: BP 162/87; PULSE 108; RESP 22; TEMP 36.7; O2SAT 95
--- NOTE | 2023-02-26 09:37 | ECG_ITS ---
Measurements Intervals [place] Rate: 84 P: 24 VT: 220 QRS: 28 QRSD: 89 T: 32 QT: 350 QTc: 414 Interpretive Statements SINUS RHYTHM WITH FIRST DEGREE AV BLOCK LOW QRS VOLTAGE IN PRECORDIAL LEADS [QRS DEFLECTION < 1.0 mV IN CHEST LEADS] POSSIBLE ANTERIOR MYOCARDIAL INFARCTION , PROBABLY OLD [30 ms Q WAVE IN V3/V4, OR R < 0.2 mV IN V4] NONSPECIFIC T-WAVE ABNORMALITY POOR QUALITY EKG WITH MISSING LEAD 3 ABNORMAL ECG COMPARED TO ECG 12/21/2021 09:58:34 FIRST DEGREE AV BLOCK NOW PRESENT Electronically Signed On 02-26-2023 12:32:35 CDT by Hai Sharma M.D.
[2023-02-26 09:55] VITALS: PULSE 100
[2023-02-26 09:59] VITALS: BP 162/87; PULSE 108; RESP 22; TEMP 36.7; O2SAT 95
[2023-02-26 09:59] LABS: Troponin I 19.1 ng/L (0.00-60.4)
[2023-02-26] MEDS: NITROFURANTOIN MONOHYD MACROCR 100 MG CAP PO (10:01)
[2023-02-26 10:05] VITALS: BP 140/90; PULSE 99; RESP 20; O2SAT 95
[2023-02-26 10:06] LABS: NT Pro B Type Natriuretic Pept 132 pg/mL (0-125)
--- NOTE | 2023-02-26 10:09 | ED.GENADULT ---
HPI - General Adult General Chief complaint: Unspecified Stated complaint: chest pressure/kidney infection Source: patient and family Mode of arrival: ambulatory Limitations: no limitations History of Present Illness HPI narrative: this is 52-year-old female with history of CAD with stents recently seen in lab and had some blood drawn and urine analysis performed which show she has your urinary tract infection, presents because she is complaining of chest discomfort rated about a 2/10 reproducible with palpation and with movement has had episode where she feels like she strained her upper chest area. There is no shortness of breath no nausea vomiting no diaphoresis no fever chills. Onset (ago): day(s) Related Data Home Medications Medication Instructions Recorded Confirmed bupropion HCl 300 mg 24 hr tablet, 300 mg PO QAM 12/21/21 02/26/23 extended release hydroxyzine pamoate 50 mg capsule 50 mg PO BID 12/21/21 02/26/23 metoprolol succinate 25 mg 25 mg PO BID 12/21/21 02/26/23 tablet,extended release 24 hr vitamin B complex (B 1 tablet PO DAILY 12/21/21 02/26/23 Complex-Vitamin B12 tablet) lisinopril 5 mg tablet 5 mg PO DAILY 11/23/22 02/26/23 rosuvastatin 40 mg tablet 40 mg PO DAILY 11/23/22 02/26/23 buspirone 15 mg tablet 15 mg PO BID 02/26/23 02/26/23 Allergies Allergy/AdvReac Type Severity Reaction Status Date / Time adhesive tape AdvReac Blister Verified 02/26/23 09:56 ICE AdvReac Blister Uncoded 02/26/23 09:56 Review of Systems Review of Systems: All systems reviewed & are unremarkable except as noted in HPI and below PMFSH Past Medical History Medical History (Updated 02/26/23 @ 10:14 by Kyle Yepez MD) Anxiety CAD (coronary artery disease) Depression DVT (deep venous thrombosis) Hyperlipidemia KIERA (obstructive sleep apnea) Super obesity Surgical History Surgical History History of appendectomy History of hysterectomy Hx of cholecystectomy Hx of tubal ligation Stented coronary artery Family History Family History Father No problems noted. Social History Social History Years smoked: 10 Smoking status: Former smoker Tobacco type: cigarettes Alcohol intake: never Substance use: never Living arrangements: alone Gender identity (if verbalized by the patient): Female Sexual Orientation (if Verbalized by the Patient): Straight or Heterosexual Spiritual care concerns: No Exam Const: General: cooperative, healthy appearing and comfortable HENMT: Face and sinus: normal facial exam Mouth: Yes Normal oral and palatal mucosa present Eyes: General: appearance normal, both eyes and all related structures Visual Donovan: normal visual donovan by confrontation Neck: Neck: normal visual inspection, full ROM and no lymphadenopathy Chest: Chest palpation & inspection: normal inspection of the chest and abnormal inspection of the chest ( Reproducible chest pain with palpation) Resp: Effort & Inspection: normal respiratory effort and able to speak in complete sentences Auscultation: clear to auscultation bilaterally Cardio: Jugular venous distension: no JVD Palpation: normal PMI Rate: regular rate Rhythm: regular rhythm : General: Yes bimanual renal exam normal bilaterally Urinary Catheter: Urinary Catheter: patent and draining Back/Spine/Pelvis: Back: no CVA tenderness Cervical Spine: normal cervical lordosis and cervical ROM normal Thoracic/Lumbar Spine: thoracic and lumbar spine normal to inspection Skin: General skin exam: normal color and no rashes or lesions noted Neuro: General: oriented to person and oriented to place Extrem: General: normal to inspection, full ROM and capillary refill normal Course Course Emergency Course: patient declined any pain medication, has reprodu
[2023-02-26 10:20] VITALS: BP 139/90; PULSE 90; RESP 20; TEMP 37; O2SAT 95
== END 2023-02-26 10:23 | disposition home or self-care (01) ==
LOC: CHSED 10:19
PROVIDERS: Emergency Provider Emergency Medicine; PCP Internal Medicine
DX: N39.0 Urinary tract infection, site not specified (principal); R07.89 Other chest pain; I25.10 Atherosclerotic heart disease of native coronary artery without angina pectoris; E78.5 Hyperlipidemia, unspecified; G47.33 Obstructive sleep apnea (adult) (pediatric); F32.A Depression, unspecified; F41.9 Anxiety disorder, unspecified; E66.01 Morbid (severe) obesity due to excess calories; Z68.43 Body mass index [BMI] 50.0-59.9, adult; Z95.5 Presence of coronary angioplasty implant and graft; Z86.718 Personal history of other venous thrombosis and embolism; Z87.891 Personal history of nicotine dependence
CPT/HCPCS: 36415; 83880; 84484; 93005; 99284; A9270

== ENCOUNTER 2023-07-04 11:15 | Outpatient (CLI) | payer OTHER, SELFPAY ==
[2023-07-04 12:44] LABS: Anion Gap 9 mmol/L (8-16); Blood Urea Nitrogen 10 mg/dL (7-18); Calcium 8.9 mg/dL (8.5-10.1); Carbon Dioxide 31 mmol/L (21-32); Chloride 103 mmol/L (98-108); Estimated Glomerular Filt Rate 59; Glucose 141 mg/dL (70-99); Osmolality Calculated 297 mOsm/kg (285-295); Potassium 4.2 mmol/L (3.5-5.1); Sodium 143 mmol/L (136-145)
== END 2023-07-04 11:16 | disposition home or self-care (01) ==
LOC: CHSLAB 11:17
PROVIDERS: PCP Internal Medicine; Visit Provider Internal Medicine
DX: I10 Essential (primary) hypertension (principal)
CPT/HCPCS: 36415; 80048

== ENCOUNTER 2023-07-06 03:33 | Emergency (ER) | payer OTHER, SELFPAY ==
--- NOTE | ~2023-07-06 | CT_ITS ---
CT scan of the Neck Technique: 2.5 mm axial scans were obtained through the neck after intravenous administration of 75 c c Omnipaque 350. Coronal and sagittal reconstructions of the neck were obtained. Dose reduction techn ique was used on this scan by utilizing automated exposure control and iterative reconstruction techn ique. The dose-length product (DLP) was 449.40 mGy-cm. Clinical History: Left neck pain Findings: There is no evidence of any significant cervical lymphadenopathy. Several small, nonenlarged jugulo- digastric and posterior cervical lymph nodes are noted bilaterally. Parapharyngeal spaces appear norm al bilaterally. The parotid and submandibular glands appear normal. There is inflammatory change involving the subcutaneous soft tissues superficial to the left mandible , without definite, discrete abscess. The pharyngeal mucosal spaces appear normal. No soft tissue masses are seen in the neck. The thyroid gland appears normal. Images of the lung apices reveal no abnormalities. Impression: Inflammatory change involving the soft tissues superficial to the left mandible, compatible with cell ulitis or other soft tissue infection. No definite, discrete abscess evident. Reviewed, dictated and finalized at [facility]. OR OFFICER Impression: Inflammatory change involving the soft tissues superficial to the left mandible , compatible with cellulitis or other soft tissue infection. No definite, discr ete abscess evident.
--- NOTE | ~2023-07-06 | XR_ITS ---
Clinical Indication: Chest pain PA and lateral views of the chest: Comparison: 12/21/2021 Findings: The lungs are clear, without evidence of focal consolidation or pleural effusion. Cardiome diastinal silhouette is within normal limits. Bones and soft tissues are unremarkable. Impression: Normal chest. Reviewed, dictated and finalized at location . ROLLER Impression: Normal chest.
[2023-07-06 03:33] VITALS: BP 159/85; PULSE 100; RESP 22; TEMP 36.8; O2SAT 95
--- NOTE | 2023-07-06 03:50 | ED.DENTAL ---
HPI - Dental/Oral General Chief complaint: Dental/Oral Stated complaint: L sided facial pain Time Seen by Provider: 07/06/23 03:49 History of Present Illness HPI Narrative: Patient is a 53 year old female with history of HTN, anxiety here with dental pain. Her dental pain began on Tuesday, is located on the left lower aspect. She was seen by her PCP on Tuesday who started her on Augmentin and tramadol. Pain has continued to get worse. Pain worsens with chewing. She notes pain radiates from her left lower jaw into her neck, left ear and upwards to her forehead. Denies any trouble breathing or swallowing. She denies fever or chills. She has taken multiple doses of tramadol, tylenol and ibuprofen overnight last night with no relief which prompted her visit to the ER. Of note, she has a dental appointment this morning at 11 AM. At the end of my evaluation she notes she just started having some left sided chest pain underneath her left breast, pain is non radiating. She has a history of 3 cardiac stents, last placed in 2021 in [place]. No current blood thinner use. Related Data Home Medications Medication Instructions Recorded Confirmed bupropion HCl 300 mg 24 hr tablet, 300 mg PO QAM 12/21/21 07/06/23 extended release metoprolol succinate 25 mg 25 mg PO BID 12/21/21 07/06/23 tablet,extended release 24 hr vitamin B complex (B 1 tablet PO DAILY 12/21/21 07/06/23 Complex-Vitamin B12 tablet) lisinopril 5 mg tablet 10 mg PO DAILY 11/23/22 07/06/23 rosuvastatin 40 mg tablet 40 mg PO DAILY 11/23/22 07/06/23 buspirone 15 mg tablet 15 mg PO BID 02/26/23 07/06/23 amoxicillin 875 mg tablet 875 mg PO BID 07/06/23 07/06/23 Allergies Allergy/AdvReac Type Severity Reaction Status Date / Time adhesive tape AdvReac Blister Verified 07/06/23 03:51 ICE AdvReac Blister Uncoded 07/06/23 03:51 Review of Systems Review of Systems: All systems reviewed & are unremarkable except as noted in HPI and below PMFSH Past Medical History Medical History (Updated 07/06/23 @ 04:28 by Marlys Bonds MD) Anxiety CAD (coronary artery disease) Depression DVT (deep venous thrombosis) Hyperlipidemia KIERA (obstructive sleep apnea) Super obesity Surgical History Surgical History History of appendectomy History of hysterectomy Hx of cholecystectomy Hx of tubal ligation Stented coronary artery Family History Family History Father No problems noted. Social History Social History Years smoked: 10 Smoking status: Former smoker Tobacco type: cigarettes Alcohol intake: never Substance use: never Living arrangements: alone Gender identity (if verbalized by the patient): Female Sexual Orientation (if Verbalized by the Patient): Straight or Heterosexual Spiritual care concerns: No Exam Narrative: GENERAL: Well-appearing, well-nourished, and in no acute distress. HEAD: Normocephalic, atraumatic. EYES: PERRLA and EOMI. ENT: Nares clear. Mucous membranes moist. Poor dentition, multiple dental caries appreciated. Tenderness over tooth 18 and 19 with dental caries appreciated in these teeth. Mild trismus. No obvious drainable periapical abscess. Tenderness over anterior cervical lymph node region however neck and body habitus limits palpation of any lymphadenopathy or swelling. Uvula midline, no pharyngeal swelling or erythema. No fullness underneath the tongue. NECK: Supple. CHEST: Clear to auscultation. No respiratory distress. HEART: Regular rate and rhythm. Normal peripheral pulses. ABDOMEN: Soft, nontender, nondistended. EXTREMITIES: Normal range of motion. No edema. SKIN: Warm, dry, no rash. NEURO: No focal deficits. Alert and oriented x3. PSYCH: Normal mood and affect. Course Course Emergency Course: Chart review performed. Patient here with
--- NOTE | 2023-07-06 04:06 | ECG_ITS ---
Measurements Intervals [place] Rate: 97 P: ND: 0 QRS: 16 QRSD: 94 T: 29 QT: 337 QTc: 429 Interpretive Statements SUPRAVENTRICULAR RHYTHM LOW QRS VOLTAGE IN PRECORDIAL LEADS [QRS DEFLECTION < 1.0 mV IN CHEST LEADS] POSSIBLE ANTERIOR MYOCARDIAL INFARCTION , OF INDETERMINATE AGE [30 ms Q WAVE IN V3/V4, OR R < 0.2 mV IN V4] ABNORMAL ECG COMPARED TO ECG 02/26/2023 09:56:27 SUPRAVENTRICULAR RHYTHM NOW PRESENT Electronically Signed On 07-06-2023 11:56:42 SENSOR TECHNICIAN by Hai Sharma M.D.
[2023-07-06 04:18] LABS: Basophils Absolute Auto 0.04 K/mm3 (0.00-0.10); Basophils Percent Auto 0.4 % (0.0-1.0); Eosinophils Absolute Auto 0.15 K/mm3 (0.02-0.50); Eosinophils Percent Auto 1.5 % (1.0-6.0); Hematocrit 41.6 % (35.0-49.0); Hemoglobin 13.5 g/dL (12.0-15.0); Immature Granulocyte Absolute 0.03 K/mm3 (0.00-0.00); Immature Granulocyte Percent A 0.3 % (0.0-0.0); Lymphocytes Absolute Auto 1.41 K/mm3 (1.10-4.50); Lymphocytes Percent Auto 13.7 % (18.0-42.0); Mean Corpuscular HGB Conc 32.5 g/dL (32.0-36.0); Mean Corpuscular Volume 83.2 fL (78.0-102.0); Mean Platelet Volume 10.2 fl (9.2-11.8); Monocytes Absolute Auto 0.68 K/mm3 (0.10-0.90); Monocytes Percent Auto 6.6 % (2.0-11.0); Neutrophils Percent Auto 77.5 % (50.0-70.0); Platelet Count Result 246 K/mm3 (150-420); Red Cell Distribution Width 13.9 % (11.6-14.4); White Blood Count 10.3 K/mm3 (4.8-10.8)
[2023-07-06 04:28] LABS: Partial Thromboplastin Time 27.7 SEC (23.90-30.70); Prothrombin Time 10.9 Seconds (9.50-12.10)
[2023-07-06] MEDS: LORazepam (*CRX) 1 MG TABLET PO (04:32)
[2023-07-06] MEDS: ONDANSETRON INJ 4 MG/2 ML VIAL IV PUSH (04:34)
[2023-07-06 04:35] LABS: Alanine Aminotransferase 18 U/L (14-59); Albumin Level 3.1 g/dL (3.4-5.0); Alkaline Phosphatase 125 U/L (46-116); Anion Gap 8 mmol/L (8-16); Aspartate Amino Transferase 11 U/L (15-37); Bilirubin,Total 0.6 mg/dL (0.00-1.00); Blood Urea Nitrogen 10 mg/dL (7-18); Calcium 8.5 mg/dL (8.5-10.1); Carbon Dioxide 30 mmol/L (21-32); Chloride 102 mmol/L (98-108); Estimated CRCL calculation 89 ml/min; Estimated Glomerular Filt Rate > 60; Glucose 161 mg/dL (70-99); Osmolality Calculated 292 mOsm/kg (285-295); Sodium 140 mmol/L (136-145); Total Protein 6.8 g/dL (6.4-8.2)
[2023-07-06 04:36] LABS: Lipase 13 U/L (16-77); Troponin I 17.8 ng/L (0.00-60.4)
[2023-07-06] MEDS: LIDO 1%/EPINEPHRINE 1:100,000 20 ML VIAL 10 ML INFILTRATE (05:30)
[2023-07-06] MEDS: BUPivacaine HCL 0.5% 10 ML AMP INFILTRATE (05:30)
[2023-07-06] MEDS: KETOROLAC 15 MG/ML VIAL (*BKC) IV PUSH (06:46)
[2023-07-06] MEDS: ACETAMINOPHEN 325 MG TABLET 650 MG PO (06:46)
[2023-07-06 06:47] LABS: Troponin I 17.3 ng/L (0.00-60.4)
== END 2023-07-06 07:00 | disposition home or self-care (01) ==
LOC: CHSED 05:29
PROVIDERS: Emergency Provider Student in an Organized Health Care Education/Training Program; PCP Internal Medicine
DX: K02.9 Dental caries, unspecified (principal); R07.9 Chest pain, unspecified; I10 Essential (primary) hypertension; F41.9 Anxiety disorder, unspecified; I25.10 Atherosclerotic heart disease of native coronary artery without angina pectoris; F32.A Depression, unspecified; E78.5 Hyperlipidemia, unspecified; Z79.899 Other long term (current) drug therapy; Z87.891 Personal history of nicotine dependence
CPT/HCPCS: 36415; 64999; 70491; 71046; 80053; 83690; 84484; 85025; 85610; 85730; 93005; 96374; 96375; 99284; A9270; J1885; J2405; Q9967

== ENCOUNTER 2023-11-02 08:27 | Outpatient (CLI) | payer OTHER, SELFPAY ==
[2023-11-02 08:43] LABS: Appearance Urine Cloudy (Clear); Bilirubin Urine Negative (Negative); Blood Urine 3+ (Negative); Color Urine Yellow (Yellow); Glucose Urine UA Negative (Negative); Ketones Urine Negative (Negative); Leukocyte Esterase Ur 2+ LEU/UL (Negative); Nitrate Urine Negative (Negative); Protein Urine Trace (Negative); Specific Grav Ur >= 1.030 (1.010-1.020); Urobilinogen Urine 0.2 mg/dL (0.2-1.0)
[2023-11-02 08:44] LABS: Basophils Absolute Auto 0.04 K/mm3 (0.00-0.10); Basophils Percent Auto 0.4 % (0.0-1.0); Eosinophils Absolute Auto 0.17 K/mm3 (0.02-0.50); Eosinophils Percent Auto 1.9 % (1.0-6.0); Hematocrit 42.5 % (35.0-49.0); Hemoglobin 13.3 g/dL (12.0-15.0); Immature Granulocyte Absolute 0.03 K/mm3 (0.00-0.00); Immature Granulocyte Percent A 0.3 % (0.0-0.0); Lymphocytes Absolute Auto 1.77 K/mm3 (1.10-4.50); Lymphocytes Percent Auto 19.6 % (18.0-42.0); Mean Corpuscular HGB Conc 31.3 g/dL (32-36); Mean Corpuscular Hemoglobin 26.6 pg (27.0-31.0); Mean Platelet Volume 10.2 fl (9.2-11.8); Monocytes Absolute Auto 0.44 K/mm3 (0.10-0.90); Monocytes Percent Auto 4.9 % (2.0-11.0); Neutrophils Percent Auto 72.9 % (50.0-70.0); Platelet Count Result 270 K/mm3 (150-420); Red Cell Distribution Width 14.2 % (11.6-14.4); White Blood Count 9.1 K/mm3 (4.8-10.8)
[2023-11-02 08:55] LABS: Add Urine Microscopic? YES; Bacteria Urine 4+ /hpf; Mucus Urine Heavy /lpf; RBC Urine 51-75 /hpf (0-2); Squamous Epithelial Cell Urine Many /hpf (Few); WBC Urine 21-30 /hpf (0-3)
[2023-11-02 09:22] LABS: Creatinine Urine 258.39 mg/dL (40-278)
[2023-11-02 09:24] LABS: MALB Creatinine Ratio 45.1 mg/g (0-30); Microalbumin Urine Random 116.6 mg/L
[2023-11-02 09:47] LABS: Alanine Aminotransferase 18 U/L (14-59); Albumin Level 3.3 g/dL (3.4-5.0); Alkaline Phosphatase 136 U/L (46-116); Anion Gap 6 mmol/L (4-12); Aspartate Amino Transferase < 10 U/L (15-37); Bilirubin,Total 0.5 mg/dL (0.00-1.00); Blood Urea Nitrogen 13 mg/dL (7-18); Carbon Dioxide 33 mmol/L (21-32); Chloride 103 mmol/L (98-108); Cholesterol 138 mg/dL (0-200); Creatine Kinase 25 U/L (26-192); Estimated Glomerular Filt Rate 52; Ferritin 169 ng/mL (8-252); Glucose 156 mg/dL (70-99); HDL Direct 53 mg/dL (40-60); Iron 51 ug/dL (50-170); LDL Cholesterol Calculated 63 mg/dL (<130); Osmolality Calculated 297 mOsm/kg (285-295); Potassium 4.2 mmol/L (3.5-5.1); Sodium 142 mmol/L (136-145); Total Protein 6.6 g/dL (6.4-8.2); Triglycerides 108 mg/dL (0-150); Vitamin B12 1933 pg/mL (193-986)
[2023-11-02 09:53] LABS: Hemoglobin A1C 6.6 % (<5.7)
[2023-11-03 17:43] LABS: Vitamin D 25 Hydroxy 14 ng/mL (30-100)
== END 2023-11-02 08:28 | disposition home or self-care (01) ==
LOC: CHSLAB 08:30
PROVIDERS: PCP Internal Medicine; Visit Provider Internal Medicine
DX: E78.2 Mixed hyperlipidemia (principal); I10 Essential (primary) hypertension; E11.65 Type 2 diabetes mellitus with hyperglycemia; E61.1 Iron deficiency; E55.9 Vitamin D deficiency, unspecified; E53.8 Deficiency of other specified B group vitamins; N39.0 Urinary tract infection, site not specified; R82.90 Unspecified abnormal findings in urine
CPT/HCPCS: 36415; 80053; 80061; 81001; 82043; 82306; 82550; 82607; 82728; 83036; 83540; 85025; 87086; 87088

== ENCOUNTER 2023-11-23 15:52 | Outpatient (CLI) | payer OTHER, SELFPAY ==
[2023-11-23 16:13] LABS: Appearance Urine Turbid (Clear); Bilirubin Urine Negative (Negative); Blood Urine Trace-intact (Negative); Color Urine Yellow (Yellow); Glucose Urine UA Negative (Negative); Ketones Urine Trace (Negative); Leukocyte Esterase Ur Trace (Negative); Nitrate Urine Negative (Negative); Protein Urine 2+ (Negative); Specific Grav Ur >= 1.030 (1.010-1.020)
[2023-11-23 16:35] LABS: Add Urine Microscopic? YES
[2023-11-23 16:36] LABS: Bacteria Urine 2+ /hpf; Squamous Epithelial Cell Urine Moderate /hpf (Few)
== END 2023-11-23 15:53 | disposition home or self-care (01) ==
LOC: CHSLAB 15:54
PROVIDERS: PCP Internal Medicine; Visit Provider Internal Medicine
DX: R31.9 Hematuria, unspecified (principal)
CPT/HCPCS: 81001; 87086; 87088; 88112

== ENCOUNTER 2023-11-29 12:26 | Outpatient (CLI) | payer OTHER, SELFPAY ==
--- NOTE | ~2023-11-29 | US_ITS ---
US retroperitoneal comp 11/29/2023 12:45 Procedure: Realtime transabdominal ultrasound of the kidneys and bladder. Indication: Hematuria Comparison: CT dated 12/30/2021 Findings: Renal echotexture is normal bilaterally without hydronephrosis, contour deforming mass or r enal calculus. The right kidney measures 12.4 cm and left kidney measures 11 cm. Bladder within norm al limits. Impression: 1: Unremarkable renal ultrasound. No stones, masses or hydronephrosis. Reviewed, dictated and finalized at location B. Impression: 1: Unremarkable renal ultrasound. No stones, masses or hydronephrosis.
== END 2023-11-29 12:27 | disposition home or self-care (01) ==
PROVIDERS: PCP Internal Medicine; Visit Provider Internal Medicine
DX: R31.9 Hematuria, unspecified (principal)
CPT/HCPCS: 76770